=== PATIENT | male | born 1960 | race Caucasian/White ===

== ENCOUNTER 2023-08-01 12:53 | Inpatient (IN) ==
[2023-08-01 13:38] LABS: Basophils # (auto) 0.03 K/uL (0.00-0.20); Basophils % (auto) 0.3 %; Eosinophils # (auto) 0.11 K/uL (0.00-0.50); Hematocrit (blood only) 46.5 % (42.0-52.0); Hemoglobin 15.1 g/dl (14.0-18.0); Immature Granulocytes # (auto) 0.05 K/uL (0.01-0.20); Immature Granulocytes % (auto) 0.5 %; Lymphocytes # (auto) 1.29 K/uL (1.20-3.40); Lymphocytes % (auto) 12.1 %; Mean Corpuscular Hgb Conc 32.5 g/dL (32.0-36.0); Mean Corpuscular Volume 95.5 fL (80.0-100.0); Monocytes # (auto) 0.88 K/uL (0.11-0.59); Monocytes % (auto) 8.3 %; Neutrophils % (auto) 77.8 %; Platelet Count 204 K/uL (130-400); RDW Coefficient of Variation 14.6 % (11.5-14.5); RDW Standard Deviation 50.6 fL (36.4-46.3); Red Blood Count 4.87 M/uL (4.70-6.10); White Blood Count 10.66 K/ul (4.8-10.8)
[2023-08-01 13:48] LABS: Albumin Level 4.2 gm/dl (3.4-5.0); Bilirubin,Total 1.2 mg/dl (0.2-1.0); Calcium 9.3 mg/dl (8.6-10.3); Potassium 4.2 mmol/L (3.5-5.1)
[2023-08-01 13:54] LABS: Albumin Globulin Ratio 1.4 (0.9-2); BUN Creatinine Ratio 16.9 (10-20); Creatinine Clr Calc Pharmacy 117.7 ml/min; Est GFR (African American) 112.7 ml/min; Est GFR (Non-African American) 97.3 ml/min; Globulin 2.9 gm/dl (2.5-4.0); Total Protein 7.1 gm/dl (6.0-8.3)
--- NOTE | 2023-08-01 14:03 | Emergency Department Note ---
Impression & Plan Cellulitis in diabetic foot ED Provider Note CHIEF COMPLAINT: Foot swelling HISTORY OF PRESENT ILLNESS: This 62-year-old patient presents to the emergency department presenting for foot pain/swelling. Patient states that on Friday, 4 days ago, he stepped on a nail. He notes that there was minimal blood, did not think much of it. He states he had his tetanus updated 1 month ago in the ED. He notes that he began having swelling, redness overlying the top of the foot. He states he punctured his foot on the bottom but swelling/redness on the top. He notes that is becoming progressively more painful, warm and red. He had no fevers at home. No nausea vomiting. Significant pain with walking. Otherwise he is a diabetic. REVIEW OF SYSTEMS: A review of systems was performed with positives and pertinent negatives listed in the history of present illness. 10 systems were reviewed and are otherwise negative. ALLERGIES: see below MEDICATIONS: see below PMH: see below SOCIAL HISTORY: see below DDx: Consider osteomyelitis, cellulitis, deep space infection PHYSICAL EXAM: Vital signs reviewed. General: Well-appearing, in no significant distress. HEENT: No scleral icterus, PERRLA, neck supple. Atraumatic. Cardiovascular: Regular rate and rhythm, no extra sounds. Pulmonary: Clear to auscultation bilaterally, normal work of breathing. Abdomen: Soft, nontender, nondistended, positive bowel sounds. Musculoskeletal: Small puncture wound to the right foot underlying first metatarsal, significant swelling, erythema/edema to the top of the foot Neurologic: Patient awake alert and oriented x 3, speech is clear Skin: Warm, dry, no rash EMERGENCY DEPARTMENT COURSE/MDM: This is a 62-year-old male presenting for right foot pain/swelling after stepping on a nail. Patient appears have obvious cellulitis, edema. Will get x-ray to help evaluate for retained foreign body. Low concern for osteomyelitis versus necrotizing infection. Patient has 2+ pulses in all extremities. Patient's blood work shows no significant medicine from a lactic acid level 3.5. Otherwise no leukocytosis. Patient will require admission for IV antibiotics for his cellulitis of the foot. Given vancomycin in the ER. MONITORING: An order for cardiac monitoring was placed and the patient is noted to be in a [] at [] beats per minute. RADIOLOGY: No acute fracture noted on foot x-ray EKG: EKG reviewed by me showing likely atrial fibrillation at a rate of 116, PVCs noted as well, no ST segment elevation consistent with STEMI DISPOSITION: Admitted for inpatient antibiotics Past Med/Surg History Medical History Atrial fibrillation On Eliquis CAD (coronary artery disease) S/p OM and diagonal stenting 2002 S/p stenting x 2 to RCA 2004 S/p ULIS F to mid and distal RCA and ramus 2014 S/p CABG x3 (2019) DM type 2 (diabetes mellitus, type 2) GERD (gastroesophageal reflux disease) HTN (hypertension) Hx of acute renal failure ~2016- renal x 1 month Hx of myocardial infarction 2001 Hyperlipidemia Surgical History H/O colonoscopy History of elbow surgery Hx of cardiac catheterization last one done 03/2023- [facility] ( no stents)--hx 4 procedures in the past -- total of 7 stents Hx of carpal tunnel repair S/P CABG x 3 2017- [facility]- follows w/ Dr Benites Family History Other No family history of adverse response to anesthesia Social History Smoking Status: Never smoker Second Hand Exposure: No; Do You Dip or Chew Tobacco: Yes (advised); Hx Alcohol Use: No Hx Substance Use: No Preferred Language: Polish Communication Ability: Effective Gravity Meter Observer Required: No Beliefs That Will Affect Care: None Current Living Situation: Alone Feels Safe at Home: Yes Assistive Devices: Contacts and Glasses Allergies Allergies Allergy/AdvReac Type Severity Reaction Status Date / Time No Known Allergies Allergy Verified 05/14/23 07:13 Home Meds Home Medications Medication Instructions Recorded Confirmed clopidogrel 75 mg tablet 75 mg PO DAILY 01/04/21 08/01/23 empagliflozin 25 mg tablet 25 mg PO DAILY 01/04/21 08/01/23 (Jardiance) glyburide 5 mg tablet 5 mg PO BID 01/04/21 08/01/23 metformin 1,000 mg tablet 1,000 mg PO BIDM 01/04/21 08/01/23 metoprolol succinate 50 mg 50 mg PO BID 01/04/21 08/01/23 tablet,extended release 24 hr (Toprol XL) multivitamin 1 tab PO DAILY 01/04/21 08/01/23 pantoprazole 20 mg tablet,delayed 20 mg PO DAILY 01/04/21 08/01/23 release ramipril 2.5 mg capsule 2.5 mg PO QAM 01/04/21 08/01/23 apixaban 5 mg tablet (Eliquis) 5 mg PO BID 05/12/23 08/01/23 rosuvastatin 40 mg tablet 40 mg PO QAM 05/12/23 08/01/23 metoprolol succinate 25 mg 25 mg PO BID 08/01/23 08/01/23 tablet,extended release 24 hr Results & Data (ED) Vital Signs Vital Signs - 24 hr 08/01/23 12:57 08/01/23 14:53 Temperature 36.4 C L Temperature Source Temporal Artery Scan Pulse Rate 84 Pulse Rate [Right Finger] 82 Pulse Rhythm [Right Finger] Regular Pulse Strength [Right Finger] Normal Respiratory Rate 20 20 Respiratory Effort / Characteristics Non-Labored Non-Labored Spontaneous Respiratory Depth Normal Normal Respiratory Pattern Regular Blood Pressure 130/78 Blood Pressure [Left Arm] 129/72 Blood Pressure Mean 95 Blood Pressure Mean [Left Arm] 91 Blood Pressure Position Sitting Pulse Oximetry 100 95 Oxygen Delivery Method Room Air Room Air Sepsis Recent Fever Within 48 Hours No Sepsis New/Unexplained Change in Mental Status No Sepsis Action Taken by Nursing No Action Required Laboratory Data 08/01/23 13:20 08/01/23 13:20 Lab Results 08/01/23 08/01/23 08/01/23 Range/Units 13:20 13:20 14:45 WBC 10.66 (4.8-10.8) K/ul RBC 4.87 (4.70-6.10) M/uL Hgb 15.1 (14.0-18.0) g/dl Hct 46.5 (42.0-52.0) % MCV 95.5 (80.0-100.0) fL MCH 31.0 (25.0-34.0) pg MCHC 32.5 (32.0-36.0) g/dL RDW Std Deviation 50.6 H (36.4-46.3) fL RDW Coeff of Rosa 14.6 H (11.5-14.5) % Plt Count 204 (130-400) K/uL MPV 10.0 (9.4-12.4) fL Immature Gran % (Auto) 0.5 % Neut % (Auto) 77.8 % Lymph % (Auto) 12.1 % Giles % (Auto) 8.3 % Eos % (Auto) 1.0 % Baso % (Auto) 0.3 % Neut # (Auto) 8.30 H (1.40-6.50) K/uL Lymph # (Auto) 1.29 (1.20-3.40) K/uL Giles # (Auto) 0.88 H (0.11-0.59) K/uL Eos # (Auto) 0.11 (0.00-0.50) K/uL Baso # (Auto) 0.03 (0.00-0.20) K/uL Immature Gran # (Auto) 0.05 (0.01-0.20) K/uL Sodium 134 L (136-145) mmol/L Potassium 4.2 (3.5-5.1) mmol/L Chloride 102 (98-107) mmol/L Carbon Dioxide 21 (21-32) mmol/L Anion Gap 11 (3-11) BUN 13 (6-23) mg/dl Creatinine 0.77 (0.6-1.4) mg/dl Est Cr Clr Drug Dosing 117.7 ml/min Est GFR ( Amer) 112.7 ml/min Est GFR (Non-Af Amer) 97.3 ml/min BUN/Creatinine Ratio 16.9 (10-20) Glucose 283 H (70-99(Fasting)) mg/dl Lactate 3.4 H* (0.4-2.0) mmol/L Calcium 9.3 (8.6-10.3) mg/dl Total Bilirubin 1.2 H (0.2-1.0) mg/dl AST 19 (13-39) U/L ALT 29 (7-52) U/L Alkaline Phosphatase 45 (34-104) U/L Total Protein 7.1 (6.0-8.3) gm/dl Albumin 4.2 (3.4-5.0) gm/dl Globulin 2.9 (2.5-4.0) gm/dl Albumin/Globulin Ratio 1.4 (0.9-2) Administered Medications Vancomycin HCl 2,000 mg/ (Sodium Chloride) 540 mls @ 200 mls/hr IV NOW ONE Stop: 08/01/23 17:04 Last Admin: 08/01/23 15:05 Dose: 200 mls/hr Documented By: KAELYN Discontinued Medications Sodium Chloride (Nss 1000ml) 1,000 mls @ 999 mls/hr IV .Q1H1M ONE Stop: 08/01/23 16:08 Last Infusion: 08/01/23 16:17 Dose: 0 mls/hr Documented By: Admin: 08/01/23 15:12 Dose: 999 mls/hr Documented By: KAELYN Cefepime HCl (Maxipime) 20 mls @ 5 mls/min IV NOW STA Stop: 08/01/23 15:35 Last Admin: 08/01/23 16:05 Dose: 5 mls/min Documented By: DHARA Imaging Data Radiologist's Impression: Foot X-Ray 08/01/23 13:53 XR foot RT min 3V routine CLINICAL HISTORY: foreign body (stepped on nail), erythema,swell TECHNIQUE: 3 views of the right foot were obtained. Comparison: None available at the time of this dictation. FINDINGS: No fractures are present. Degenerative changes are seen. No soft tissue abnormality is seen. IMPRESSION: Degenerative changes without evidence of acute fracture. ACT 112: Negative or not required by law. Electronically signed by: Connor Whitney M.D. 08/01/2023 2:27 PM Discharge Plan Visit Data Chief Complaint: Foot Injury/Pain Stated Complaint: STEPPED ON A NAIL W/ R FOOT, CAME FROM -CARE ED Provider: Andie Monaco Discharge Problem: Cellulitis in diabetic foot Forms Stand Alone Forms: My [facility] [employer] Prescriptions Prescriptions: No Action multivitamin Tablet 1 tab PO DAILY glyburide 5 mg tablet 5 mg PO BID metoprolol succinate [Toprol XL] 50 mg tablet extended release 24 hr 50 mg PO BID Rx Instructions: Patient states taking once daily in the am, but prescribed BID with 25mg toprol BID as well clopidogrel 75 mg tablet 75 mg PO DAILY pantoprazole 20 mg tablet,delayed release (DR/EC) 20 mg PO DAILY metformin 1,000 mg tablet 1,000 mg PO BIDM ramipril 2.5 mg capsule 2.5 mg PO QAM Jardiance 25 mg tablet 25 mg PO DAILY rosuvastatin 40 mg Tablet 40 mg PO QAM Eliquis 5 mg Tablet 5 mg PO BID metoprolol succinate 25 mg tablet extended release 24 hr 25 mg PO BID Rx Instructions: Prescribed BID to take with 50mg toprol bid as well but pt states taking once daily in PM Referrals Referrals: Ghassan Thakur MD [Primary Care Provider] -
[2023-08-01] MEDS ORDERED: VANCOMYCIN HCL 2,000 MG in SODIUM CHLORIDE 0.9% 500 ML IV ONE (14:23)
[2023-08-01] MEDS ORDERED: VANCOMYCIN CONSULT ACTIVE PRN ×2 (14:23→17:14)
--- NOTE | 2023-08-01 14:30 | XRay Report ---
XR foot RT min 3V routine CLINICAL HISTORY: foreign body (stepped on nail), erythema,swell TECHNIQUE: 3 views of the right foot were obtained. Comparison: None available at the time of this dictation. FINDINGS: No fractures are present. Degenerative changes are seen. No soft tissue abnormality is seen. IMPRESSION: Degenerative changes without evidence of acute fracture. ACT 112: Negative or not required by law. Electronically signed by: Connor Whitney M.D. 08/01/2023 2:27 PM
[2023-08-01] MEDS ORDERED: SODIUM CHLORIDE 0.9% 1,000 ML IV ONE (15:08)
--- NOTE | 2023-08-01 15:23 | History & Physical Report ---
Date of Service August 01, 2023 Assessment & Plan (1) Cellulitis in diabetic foot: Plan: Patient is 62-year-old male with PMH CAD s/p stents, CABG, HTN, dyslipidemia, PAF s/p cardioversion, GERD presented to ER with complaint of right foot redness x 1 day after stepping on nail with puncture through sneaker 4 days ago. Reported tetanus booster 07/2023 In ER afebrile, HR 84-101, other vitals stable. WBC: 10.6, lactate 3.4--> 1.9 Right foot x-ray: No fracture or foreign body noted per my interpretation. Radiologist read as Degenerative changes without evidence of acute fracture. In ER given 1L NSS, vancomycin Start cefepime, continue vancomycin Blood cultures pending. Were obtained after initial antibiotics given Podiatry consult CBC, BMP in a.m. Hold Eliquis and make n.p.o. midnight in case of acute worsening in procedure needed. Reassess tomorrow (2) DM type 2 (diabetes mellitus, type 2): Plan: A1c: 7.9 on 03/10/2023 Random glucose 283 Hold home Jardiance, glyburide, metformin Basal bolus insulin per protocol A1c in a.m. (3) Atrial fibrillation: Plan: History of paroxysmal atrial fibrillation s/p cardioversion 05/2023 Chronically anticoagulated on Eliquis Holding Eliquis currently as above Initial EKG rate 116, questionable atrial fibrillation per my interpretation. Obtain new EKG to further assess Patient prescribed metoprolol succinate 75 mg twice daily however has been taking 50 mg in a.m. and 25 mg at bedtime Plan to continue metoprolol succinate as patient recently taken however monitor heart rate, may need dosage based on heart rate (4) CAD (coronary artery disease): Plan: S/p stent, CABG x3 Per outpatient chart review History cardiac cath 04/30/2023: Significant pokagon multivessel disease: Distal LMCA 30%, mid LAD 100%, diagonal 1 is small vessel and diffusely diseased, proximal left circumflex 50% stenosis, OM1 50% stenosis distal to previously placed stent which is patent, proximal through mid RCA 100% occluded (in-stent) grafts 2/3 GUILLEN-LAD and SVG to r PDA widely patent, SVG to diag is 100% flush occluded Denies chest pain, shortness of breath Continue Plavix, rosuvastatin, metoprolol succinate (5) HTN (hypertension): Plan: Stable Continue metoprolol succinate, ramipril (6) GERD (gastroesophageal reflux disease): Plan: Continue PPI DVT Prophylaxis SCDs for now Full Code as per discussion with pt Follows with Dr Thakur for routine care Pt was seen and care coordinated with Dr Hearn. See addendum History of Present Illness Chief Complaint: foot redness and pain Primary Care Provider: Ghassan Thakur MD Patient is 62-year-old male with PMH CAD s/p stents, CABG, HTN, dyslipidemia, PAF s/p cardioversion, GERD presented to ER with complaint of right foot redness x 1 day. Patient states 4 days ago stepped on nail with right foot. Patient states nail punctured through his sneaker into his plantar surface of right foot. Patient states nail was not lodged in his foot however did leave puncture wound. Yesterday noticed foot started to become swollen and tender. Today noticed redness to dorsal aspect of foot. Pain to right foot is worse today, aggravated with any light palpation or attempted walking or weightbearing. Denies noted red streaking or any noted purulent discharge from foot. Patient reports history of stepping on nail with right foot approximately 4 weeks ago and received tetanus booster and oral antibiotics at that time. Patient states never had any redness, erythema or pain to foot at that time. Denies fever/chills, diaphoresis, N/V/D/C, HOOPER, dizziness, syncope, vision changes, neck pain, CP, SOB, orthopnea, palpitations, cough, sore throat, choking, otalgia, rhinorrhea, abdominal pain, paresthesias, weakness, other rashes, urinary symptoms. Allergies Allergy/AdvReac Type Severity Reaction Status Date / Time No Known Allergies Allergy Verified 05/14/23 07:13 Home Medications Medication Instructions Recorded Confirmed Type clopidogrel 75 mg tablet 75 mg PO DAILY 01/04/21 08/01/23 History empagliflozin 25 mg tablet 25 mg PO DAILY 01/04/21 08/01/23 History (Jardiance) glyburide 5 mg tablet 5 mg PO BID 01/04/21 08/01/23 History metformin 1,000 mg tablet 1,000 mg PO BIDM 01/04/21 08/01/23 History metoprolol succinate 50 mg 50 mg PO BID 01/04/21 08/01/23 History tablet,extended release 24 hr (Toprol XL) multivitamin 1 tab PO DAILY 01/04/21 08/01/23 History pantoprazole 20 mg tablet,delayed 20 mg PO DAILY 01/04/21 08/01/23 History release ramipril 2.5 mg capsule 2.5 mg PO QAM 01/04/21 08/01/23 History apixaban 5 mg tablet (Eliquis) 5 mg PO BID 05/12/23 08/01/23 History rosuvastatin 40 mg tablet 40 mg PO QAM 05/12/23 08/01/23 History metoprolol succinate 25 mg 25 mg PO BID 08/01/23 08/01/23 History tablet,extended release 24 hr Past Med/Surg History Medical History Atrial fibrillation On Eliquis CAD (coronary artery disease) S/p OM and diagonal stenting 2002 S/p stenting x 2 to RCA 2004 S/p LUIS F to mid and distal RCA and ramus 2014 S/p CABG x3 (2019) DM type 2 (diabetes mellitus, type 2) GERD (gastroesophageal reflux disease) HTN (hypertension) Hx of acute renal failure ~2016- renal x 1 month Hx of myocardial infarction 2001 Hyperlipidemia Surgical History H/O colonoscopy History of elbow surgery Hx of cardiac catheterization last one done 03/2023- [facility] ( no stents)--hx 4 procedures in the past -- total of 7 stents Hx of carpal tunnel repair S/P CABG x 3 2017- [facility]- follows w/ Dr Benites Family History Other No family history of adverse response to anesthesia Social History Smoking Status: Never smoker Second Hand Exposure: No; Do You Dip or Chew Tobacco: Yes; Hx Alcohol Use: Yes Alcohol type: hard liquor Hx Substance Use: No Preferred Language: [place] Communication Ability: Effective Professional Services Manager Required: No Beliefs That Will Affect Care: None Current Living Situation: Alone Other Information That Helps Us Care for You: No Feels Safe at Home: Yes Safety Concerns: Feels Safe At This Time Assistive Devices: None Review of Systems Review of Systems: All systems reviewed & are unremarkable except as noted in HPI & below Physical Exam Physical Exam: General: no distress, WDWN Head: normocephalic, atraumatic Eyes: conjunctiva non-injected, anicteric ENT: normal inspection external ears, nose, mucous membranes moist Neck: supple, trachea midline Lungs: clear, no respiratory distress, no wheezing/rhonchi/rales CV: RRR, no murmur, no JVD, no pretibial edema Abd: normal BS, soft, non-tender Ext: no cyanosis, no calf tenderness; RLE: Right foot: + Diffuse edema to entire foot, positive erythema and warmth to dorsal aspect of foot with tenderness to very light palpation, no fluctuance noted, plantar surface distal lateral aspect foot with noted puncture wound without any discharge. No red streaking noted up leg Neuro: A&O x 3, no focal deficits noted, normal affect Skin: As above in extremities, otherwise skin warm, dry Results & Data Results & Data Vital Signs (Past 12 Hours) Vital Signs Temp Pulse Pulse Resp BP BP Pulse Ox 08/01/23 14:53 82 20 129/72 95 08/01/23 12:57 36.4 C L 84 20 130/78 100 O2 Del Method 08/01/23 14:53 Room Air 08/01/23 12:57 Room Air Laboratory Results Short CBC 08/01/23 Range/Units 13:20 WBC 10.66 (4.8-10.8) K/ul Hgb 15.1 (14.0-18.0) g/dl Hct 46.5 (42.0-52.0) % Plt Count 204 (130-400) K/uL BMP 08/01/23 13:20 Sodium 134 L Potassium 4.2 Chloride 102 Carbon Dioxide 21 BUN 13 Creatinine 0.77 Glucose 283 H Calcium 9.3 Liver Function 08/01/23 Range/Units 13:20 Total Bilirubin 1.2 H (0.2-1.0) mg/dl AST 19 (13-39) U/L ALT 29 (7-52) U/L Alkaline Phosphatase 45 (34-104) U/L Albumin 4.2 (3.4-5.0) gm/dl Diagnostic Findings Foot X-Ray 08/01/23 13:53 XR foot RT min 3V routine CLINICAL HISTORY: foreign body (stepped on nail), erythema,swell TECHNIQUE: 3 views of the right foot were obtained. Comparison: None available at the time of this dictation. FINDINGS: No fractures are present. Degenerative changes are seen. No soft tissue abnormality is seen. IMPRESSION: Degenerative changes without evidence of acute fracture. ACT 112: Negative or not required by law. Electronically signed by: Connor Whitney M.D. 08/01/2023 2:27 PM Supervising Physician Co-Signing Physician Notes Pt seen and examined by me, care coordinated w/ Dawn Mercado PA-C, pls refer to her note above for further detail. Pt is 62 yo M male w/ CAD s/p stents, CABG, HTN, dyslipidemia, PAF s/p cardioversion, GERD who presents w/ right foot redness and pain. 4 days ago he stepped on nail with right foot and nail punctured through his sneaker into his plantar surface of right foot. Yesterday noticed foot started to become swollen and tender. Today noticed redness to dorsal aspect of foot. Pain to right foot is worse today, aggravated with any light palpation. Denies fever/chills, chest pain or shortness of breath. Currently laying in bed in NAD. awake alert oriented , answering appropriately. Lung sounds clear, heart sounds regular, abdomen soft, nontender and obese, + erythema and warmth to dorsal aspect of foot with tenderness to very light palpation, plantar surface distal lateral aspect foot with noted puncture wound without any discharge. No red streaking noted up leg. Pt is moving extremities. Started on vancomycin in ED, adding cefepime. Podiatry consult. Follow [facility]. MD Nadiya
[2023-08-01] MEDS ORDERED: CEFEPIME 2,000 MG in SYRINGE 0 ML IV STA (15:29)
[2023-08-01] MEDS ORDERED: CEFEPIME 20 ML IV STA (15:32)
[2023-08-01] MEDS ORDERED: CARBOHYDRATES FOR HYPOGLYCEMIA PO PRN (17:14)
[2023-08-01] MEDS ORDERED: POLYETHYLENE (MIRALAX) 17 GM PACK PO PRN (17:14)
[2023-08-01] MEDS ORDERED: GLUCOSE 40% GEL 15 GM TUBE PO PRN (17:14)
[2023-08-01] MEDS ORDERED: ONDANSETRON INJ 2 MG/ML 2 ML VIAL IV PRN (17:14)
[2023-08-01] MEDS ORDERED: GLUCOSE 10 TAB/TUBE PO PRN (17:14)
[2023-08-01] MEDS ORDERED: GLUCAGON FOR INJ 1 MG VIAL SQ PRN (17:14)
[2023-08-01] MEDS ORDERED: DEXTROSE 50% 50 ML SYRINGE IV PRN (17:14)
[2023-08-01] MEDS ORDERED: SODIUM CHLORIDE 0.9% 1,000 ML IV SCH (17:14)
[2023-08-01] MEDS: oxyCODONE HCL IR 5 MG TAB (IMMEDIATE RELEASE) PO PRN (18:24)
[2023-08-01] MEDS ORDERED: PNEUMOCOCCAL Polysaccharide Vaccine 25mcg/0.5mL vial/Syr IM ONE (19:45)
[2023-08-01] MEDS: INSULIN ASPART PER UNIT CHARGE SC SCH ×2 (20:31→21:16)
[2023-08-01] MEDS ORDERED: METOPROLOL SUCC 25MG EXT REL TAB PO SCH (21:00)
[2023-08-01] MEDS ORDERED: VANCOMYCIN HCL 1,500 MG in SODIUM CHLORIDE 0.9% 500 ML IV SCH (21:00)
[2023-08-01] MEDS: LANTUS PER UNIT CHARGE SQ SCH (21:16)
[2023-08-01] MEDS ORDERED: HYDROmorphone INJ 0.5 MG/0.5 ML SYR IV STA (21:24)
[2023-08-01] MEDS: METOPROLOL SUCC 50MG EXT REL TAB PO SCH (22:00)
--- NOTE | 2023-08-01 22:20 | Orthopedic Consultation ---
Date of Consultation August 01, 2023 Assessment & Plan (1) Cellulitis in diabetic foot: Patient seen, evaluated, and treated. Reviewed puncture wound and ascending cellulitis. Reviewed x-ray images and x-ray findings. There is no gas seen in soft tissue. (+) forefoot edema noted. Fourth proximal phalanx shows probable foreign body noted on AP and oblique plain films. Patient reports puncture wound with galvanized nail. Foreign body findings consistent with zinc flakes from galvanized nail. Continue broad spectrum IV abx therapy. Will continue to follow while in house. Thank you for allowing me to participate in this Patients care. (2) DM type 2 (diabetes mellitus, type 2): History of Present Illness Attending Physician: Ag Hearn MD History of Present Illness Patient is 62-year-old male seen at bedside for right foot punchture wound with associated cellulitis. Patient has a past medical history signficant for Type II diabetes, CAD s/p stents, CABG, HTN, dyslipidemia, PAF s/p cardioversion, GERD. Patient presented to urgent care who directed him to [facility] ER. Patient states he stepped on a galvanized nail which went through his shoe into his right foot. Date on injury Friday07/29/23. Patient notes yesterday he noticed foot started to become swollen and tender. Today noticed worsening redness to dorsal aspect of foot. Pain to right foot is worse today, aggravated with any light palpation or attempted walking or weightbearing. Allergies Allergy/AdvReac Type Severity Reaction Status Date / Time No Known Allergies Allergy Verified 05/14/23 07:13 Home Medications Medication Instructions Recorded Confirmed Type clopidogrel 75 mg tablet 75 mg PO DAILY 01/04/21 08/01/23 History empagliflozin 25 mg tablet 25 mg PO DAILY 01/04/21 08/01/23 History (Jardiance) glyburide 5 mg tablet 5 mg PO BID 01/04/21 08/01/23 History metformin 1,000 mg tablet 1,000 mg PO BIDM 01/04/21 08/01/23 History metoprolol succinate 50 mg 50 mg PO BID 01/04/21 08/01/23 History tablet,extended release 24 hr (Toprol XL) multivitamin 1 tab PO DAILY 01/04/21 08/01/23 History pantoprazole 20 mg tablet,delayed 20 mg PO DAILY 01/04/21 08/01/23 History release ramipril 2.5 mg capsule 2.5 mg PO QAM 01/04/21 08/01/23 History apixaban 5 mg tablet (Eliquis) 5 mg PO BID 05/12/23 08/01/23 History rosuvastatin 40 mg tablet 40 mg PO QAM 05/12/23 08/01/23 History metoprolol succinate 25 mg 25 mg PO BID 08/01/23 08/01/23 History tablet,extended release 24 hr Patient History Medical History Atrial fibrillation On Eliquis CAD (coronary artery disease) S/p OM and diagonal stenting 2001 S/p stenting x 2 to RCA 2003 S/p LUIS F to mid and distal RCA and ramus 2014 S/p CABG x3 (2019) DM type 2 (diabetes mellitus, type 2) GERD (gastroesophageal reflux disease) HTN (hypertension) Hx of acute renal failure ~2016- renal x 1 month Hx of myocardial infarction 2001 Hyperlipidemia Surgical History H/O colonoscopy History of elbow surgery Hx of cardiac catheterization last one done 03/2023- [facility] [place] ( no stents)--hx 4 procedures in the past -- total of 7 stents Hx of carpal tunnel repair S/P CABG x 3 2017- [facility]- follows w/ Dr Benites Family History Other No family history of adverse response to anesthesia Social History Smoking Status: Never smoker Second Hand Exposure: No; Do You Dip or Chew Tobacco: Yes; Hx Alcohol Use: Yes Alcohol type: hard liquor Hx Substance Use: No Preferred Language: Guatemalan Communication Ability: Effective Photonics Engineering Technologist Required: No Beliefs That Will Affect Care: None Current Living Situation: Alone Other Information That Helps Us Care for You: No Feels Safe at Home: Yes Safety Concerns: Feels Safe At This Time Assistive Devices: None Review of Systems Review of Systems: All systems reviewed & are unremarkable except as noted in Subjective Physical Exam Constitutional: well developed, well nourished, cooperative and comfortable Eyes: normal visual terrell by confrontation Neck: normal visual inspection and trachea midline Cardiovascular: Vessels: posterior tibial pulses present and dorsalis pedis pulses present Extremities: normal capillary refill, + pedal edema and + edema (Right foot, ankle, leg) Musculoskeletal: Extremities: extremities normal to inspection (Pain on palpation to right foot and ankle.) Skin: + erythema (Right dorsal foot and ankle extending to anterior leg) Trauma: + puncture (Right fourth MTPJ) Neurologic: moves all extremities Psychiatric: Orientation: alert and oriented x 3 Results & Data Vital Signs (Past 12 Hours) Vital Signs Temp Pulse Pulse Resp BP BP BP 08/01/23 19:13 36.5 C 97 H 18 113/61 08/01/23 18:26 36.5 C 101 H 16 138/83 08/01/23 17:30 82 18 133/89 08/01/23 14:53 82 20 129/72 08/01/23 12:57 36.4 C L 84 20 130/78 Pulse Ox O2 Del Method 08/01/23 19:13 99 Room Air 08/01/23 18:26 99 Room Air 08/01/23 17:30 100 Room Air 08/01/23 14:53 95 Room Air 08/01/23 12:57 100 Room Air
[2023-08-01] MEDS: CEFEPIME 2,000 MG in SYRINGE 0 ML IV SCH (23:16)
[2023-08-01] MEDS: ACETAMINOPHEN 325 MG TAB PO PRN (23:16)
[2023-08-02] MEDS ORDERED: VANCOMYCIN HCL 1,250 MG in SODIUM CHLORIDE 0.9% 250 ML IV SCH (03:00)
[2023-08-02] MEDS: oxyCODONE HCL IR 5 MG TAB (IMMEDIATE RELEASE) PO PRN ×3 (04:54→23:57)
[2023-08-02 07:03] LABS: Basophils # (auto) 0.04 K/uL (0.00-0.20); Basophils % (auto) 0.5 %; Eosinophils # (auto) 0.29 K/uL (0.00-0.50); Eosinophils % (auto) 3.3 %; Hematocrit (blood only) 37.9 % (42.0-52.0); Hemoglobin 12.8 g/dl (14.0-18.0); Immature Granulocytes # (auto) 0.05 K/uL (0.01-0.20); Immature Granulocytes % (auto) 0.6 %; Lymphocytes # (auto) 1.52 K/uL (1.20-3.40); Lymphocytes % (auto) 17.3 %; Mean Corpuscular Hemoglobin 31.1 pg (25.0-34.0); Mean Corpuscular Hgb Conc 33.8 g/dL (32.0-36.0); Mean Corpuscular Volume 92.2 fL (80.0-100.0); Mean Platelet Volume 9.8 fL (9.4-12.4); Monocytes # (auto) 0.85 K/uL (0.11-0.59); Monocytes % (auto) 9.7 %; Neutrophils # (auto) 6.02 K/uL (1.40-6.50); Neutrophils % (auto) 68.6 %; Platelet Count 182 K/uL (130-400); RDW Coefficient of Variation 14.4 % (11.5-14.5); RDW Standard Deviation 48.7 fL (36.4-46.3); Red Blood Count 4.11 M/uL (4.70-6.10); White Blood Count 8.77 K/ul (4.8-10.8)
[2023-08-02 08:05] LABS: BUN Creatinine Ratio 16.4 (10-20); Calcium 8.2 mg/dl (8.6-10.3); Creatinine Clr Calc Pharmacy 148.6 ml/min; Potassium 3.6 mmol/L (3.5-5.1)
[2023-08-02] MEDS: CEFEPIME 2,000 MG in SYRINGE 0 ML IV SCH ×3 (08:46→23:35)
[2023-08-02] MEDS: METOPROLOL SUCC 50MG EXT REL TAB PO SCH ×2 (08:47→21:43)
[2023-08-02] MEDS: ROSUVASTATIN CALCIUM 20 MG TAB PO SCH (08:47)
[2023-08-02] MEDS: ENALAPRIL MALEATE 10 MG TAB PO SCH (08:47)
[2023-08-02] MEDS: ACETAMINOPHEN 325 MG TAB PO PRN (08:48)
[2023-08-02] MEDS: PANTOprazole 40 MG TAB PO SCH (08:48)
[2023-08-02] MEDS: CLOPIDOGREL BISULFATE 75 MG TAB PO SCH (08:48)
[2023-08-02 09:05] LABS: Estimated Average Glucose 189 mg/dl; Hemoglobin A1C 8.2 % (4.5-5.6)
[2023-08-02] MEDS ORDERED: ACETAMINOPHEN 325 MG TAB PO PRN (10:19)
[2023-08-02] MEDS: INSULIN ASPART PER UNIT CHARGE SC SCH ×4 (10:19→21:40)
[2023-08-02] MEDS: LANTUS PER UNIT CHARGE SQ SCH ×2 (10:20→21:42)
[2023-08-02] MEDS ORDERED: Heparin IV Adult Wt-Based Low-Dose *NO* Bolus Protocol IV SCH (10:33)
--- NOTE | 2023-08-02 11:00 | Hospitalist Progress Note ---
Date of Service August 02, 2023 Assessment & Plan (1) Cellulitis in diabetic foot: Plan: 62-year-old male with PMH CAD s/p stents, CABG, HTN, dyslipidemia, PAF s/p cardioversion, GERD presented to ER with complaint of right foot redness x 1 day after stepping on nail with puncture through sneaker 4 days ago. Reported tetanus booster 07/2023 In ER afebrile, HR 84-101, other vitals stable. WBC: 10.6, lactate 3.4--> 1.9 Right foot x-ray noted degenerative changes without evidence of acute fracture. Education And Training Manager evaluation noted Continue vancomycin and cefepime Optimize pain control (2) DM type 2 (diabetes mellitus, type 2): Plan: A1c: 7.9 on 03/10/2023 HbA1c is 8.2 today Continue to hold home Jardiance, glyburide, metformin Continue insulin per protocol to ensure normoglycemia (3) Atrial fibrillation: Plan: History of paroxysmal atrial fibrillation s/p cardioversion 05/2023 Chronically anticoagulated on Eliquis Currently in Afib Continue metoprolol succinate Home eliquis on hold in case surgical procedure is needed this admission Will do heparin drip for now while eliquis is on hold Per Admitting Provider, Patient prescribed metoprolol succinate 75 mg twice daily however has been taking 50 mg in a.m. and 25 mg at bedtime Will monitor (4) CAD (coronary artery disease): Plan: S/p stent, CABG x3 Per outpatient chart review History cardiac cath 04/30/2023: Significant [place] multivessel disease: Distal LMCA 30%, mid LAD 100%, diagonal 1 is small vessel and diffusely diseased, proximal left circumflex 50% stenosis, OM1 50% stenosis distal to previously placed stent which is patent, proximal through mid RCA 100% occluded (in-stent) grafts 2/3 GUILLEN-LAD and SVG to r PDA widely patent, SVG to diag is 100% flush occluded Continue Plavix, rosuvastatin, metoprolol succinate (5) HTN (hypertension): Plan: Stable Continue metoprolol succinate, ACEI (6) GERD (gastroesophageal reflux disease): Plan: Continue PPI DVT Prophylaxis Hep gtt as above Full Code as per discussion with pt Follows with Dr Thakur for routine care I spent a total of 50 minutes coordinating, documenting and providing care for this patient excluding time spent in performance of separately billed services Admission and Anticipated Discharge Date Admission Date: August 01, 2023 Subjective Patient seen and examined Reports severe right foot pain/swelling Denied fever, chills, nausea, vomiting, abd pain, diarrhea, constipation Denied cough, chest pain, SOB Physical Exam Constitutional: + well hydrated; no acute distress Eyes: PERRL, conjunctivae normal, anicteric sclerae ENMT: external ear and nose normal, oropharynx normal Respiratory: normal respiratory effort, lungs clear to auscultation Cardiovascular: Rate/Rhythm: + irregularly irregular S1 S2 Gastrointestinal (Abdomen): normal bowel sounds, soft, nontender, no hepatosplenomegaly Musculoskeletal: Right foot swelling. Erythema over dorsum extending to lower leg (within markings), significant tenderness Puncture wound on dorsum of feet Neurologic: PERRL, EOMI, accommodation nl, no face palsy, no dysarthria Psychiatric: A+Ox3, euthymic affect Results & Data Results & Data Vital Signs (Past 12 Hours) Vital Signs Temp Pulse Resp BP Pulse Ox O2 Del Method 08/02/23 07:38 36.8 C 60 16 103/65 97 Room Air 08/02/23 05:01 36.4 C L 93 H 18 119/69 97 Room Air 08/01/23 23:50 Room Air Laboratory Results Abnormal lab results 08/01/23 08/01/23 08/01/23 Range/Units 13:20 13:20 14:45 RBC (4.70-6.10) M/uL Hgb (14.0-18.0) g/dl Hct (42.0-52.0) % RDW Std Deviation 50.6 H (36.4-46.3) fL RDW Coeff of Rosa 14.6 H (11.5-14.5) % Neut # (Auto) 8.30 H (1.40-6.50) K/uL [place] # (Auto) 0.88 H (0.11-0.59) K/uL Sodium 134 L (136-145) mmol/L Glucose 283 H (70-99(Fasting)) mg/dl POC Glucose (70-99) mg/dl Hemoglobin A1c (4.5-5.6) % Lactate 3.4 H* (0.4-2.0) mmol/L Calcium (8.6-10.3) mg/dl Total Bilirubin 1.2 H (0.2-1.0) mg/dl 08/01/23 08/02/23 08/02/23 Range/Units 17:27 06:04 06:04 RBC 4.11 L (4.70-6.10) M/uL Hgb 12.8 L (14.0-18.0) g/dl Hct 37.9 L (42.0-52.0) % RDW Std Deviation 48.7 H (36.4-46.3) fL RDW Coeff of Rosa (11.5-14.5) % Neut # (Auto) (1.40-6.50) K/uL [place] # (Auto) 0.85 H (0.11-0.59) K/uL Sodium (136-145) mmol/L Glucose 53 L* (70-99(Fasting)) mg/dl POC Glucose 140 H (70-99) mg/dl Hemoglobin A1c (4.5-5.6) % Lactate (0.4-2.0) mmol/L Calcium 8.2 L (8.6-10.3) mg/dl Total Bilirubin (0.2-1.0) mg/dl 08/02/23 08/02/23 Range/Units 06:04 07:57 RBC (4.70-6.10) M/uL Hgb (14.0-18.0) g/dl Hct (42.0-52.0) % RDW Std Deviation (36.4-46.3) fL RDW Coeff of Rosa (11.5-14.5) % Neut # (Auto) (1.40-6.50) K/uL [place] # (Auto) (0.11-0.59) K/uL Sodium (136-145) mmol/L Glucose (70-99(Fasting)) mg/dl POC Glucose 112 H (70-99) mg/dl Hemoglobin A1c 8.2 H (4.5-5.6) % Lactate (0.4-2.0) mmol/L Calcium (8.6-10.3) mg/dl Total Bilirubin (0.2-1.0) mg/dl
--- NOTE | 2023-08-02 11:25 | Pharmacy Report ---
Pharmacy PK ABX Note - Date of Service August 02, 2023 - Assessment and Plan Assessment 62 year old M receiving vancomycin/cefepime for treatment of foot cellulitis after stepping on nail with puncture through sneaker 4 days ago. Pertinent microbiologic data includes: Pending blood cultures (drawn after abx) Day # 2 of antimicrobial therapy. Plan Vancomycin * Loading dose: 2000 mg IV x 1 * Maintenance dose: 1250 mg IV every 8 hours --> will adjust to 1500 mg q12H * Regimen is predicted to achieve target AUC/DORA of 400-600 mg/L.hr * Random level for tomorrow 08/03 ~1000 Pharmacy will continue to follow and will adjust dose/frequency as necessary. Thank you. Pharmacy has transitioned to AUC monitoring for vancomycin. AUC/DORA is the preferred PK/PD target and is associated with decreased risk of nephrotoxicity compared to traditional trough targets.
[2023-08-02 11:35] LABS: Partial Thromboplastin Ratio 1.1; Prothrombin Time 11.3 Seconds (9.0-12.0)
[2023-08-02] MEDS: HYDROmorphone INJ 0.5 MG/0.5 ML SYR IV PRN ×2 (12:03→19:26)
[2023-08-02] MEDS: HEPARIN SODIUM/DEXTROSE 25,000 UNITS/500 ML BAG IV SCH (12:04)
[2023-08-02] MEDS: VANCOMYCIN HCL 1,500 MG in SODIUM CHLORIDE 0.9% 500 ML IV SCH (16:28)
[2023-08-02 19:00] LABS: Partial Thromboplastin Ratio 1.3; Partial Thromboplastin Time 36.5 Seconds (21.0-31.0)
--- NOTE | 2023-08-02 21:59 | Orthopedic Progress Note ---
Date of Service August 02, 2023 Assessment & Plan (1) Cellulitis in diabetic foot: Plan: Patient seen, evaluated, and treated. Reviewed puncture wound and ascending cellulitis. Significant decrease in erythema and edema noted to Right foot. Discussed Patient concern over continued pain with only minimal decrease. Patient may benefit from CT with contrast r/o abscess if discomfort continues. Thank you for allowing me to participate in this Patients care. (2) DM type 2 (diabetes mellitus, type 2): Admission and Anticipated Discharge Date Admission Date: August 01, 2023 Subjective Patient seen at bedside resting comfortably. He notes continued pain to right foot. Review of Systems Review of Systems: All systems reviewed & are unremarkable except as noted in Subjective Physical Exam Constitutional: well developed, well nourished, cooperative and comfortable Eyes: normal visual terrell by confrontation Neck: normal visual inspection and trachea midline Cardiovascular: Rate/Rhythm: + irregularly irregular Vessels: posterior tibial pulses present and dorsalis pedis pulses present Extremities: normal capillary refill, + pedal edema and + edema (Right foot, ankle, leg) Musculoskeletal: Extremities: extremities normal to inspection (Pain on palpation to right foot and ankle.) Skin: + erythema (Right dorsal foot and ankle extending to anterior leg) Trauma: + puncture (Right fourth MTPJ) Neurologic: moves all extremities Psychiatric: Orientation: alert and oriented x 3 Results & Data Vital Signs (Past 12 Hours) Vital Signs Temp Pulse Pulse Resp BP Pulse Ox O2 Del Method 08/02/23 20:09 36.6 C 84 18 124/81 93 Room Air 08/02/23 17:15 93 H 08/02/23 15:42 36.7 C 104 H 20 88/52 L 97 Room Air 08/02/23 11:38 36.5 C 87 16 111/77 98 Room Air
[2023-08-03 01:46] LABS: Hematocrit (blood only) 40.6 % (42.0-52.0); Hemoglobin 13.3 g/dl (14.0-18.0); Mean Corpuscular Hemoglobin 30.9 pg (25.0-34.0); Mean Corpuscular Hgb Conc 32.8 g/dL (32.0-36.0); Mean Corpuscular Volume 94.2 fL (80.0-100.0); Mean Platelet Volume 9.9 fL (9.4-12.4); Platelet Count 210 K/uL (130-400); RDW Coefficient of Variation 14.3 % (11.5-14.5); RDW Standard Deviation 49.7 fL (36.4-46.3); Red Blood Count 4.31 M/uL (4.70-6.10)
[2023-08-03 02:03] LABS: BUN Creatinine Ratio 21.2 (10-20); Calcium 8.3 mg/dl (8.6-10.3); Creatinine Clr Calc Pharmacy 137.4 ml/min; Est GFR (African American) 120.1 ml/min; Est GFR (Non-African American) 103.6 ml/min
[2023-08-03 02:40] LABS: Partial Thromboplastin Ratio 1.3; Partial Thromboplastin Time 37.4 Seconds (21.0-31.0)
[2023-08-03] MEDS: VANCOMYCIN HCL 1,500 MG in SODIUM CHLORIDE 0.9% 500 ML IV SCH ×2 (02:50→16:18)
[2023-08-03] MEDS: oxyCODONE HCL IR 5 MG TAB (IMMEDIATE RELEASE) PO PRN ×2 (05:42→22:00)
[2023-08-03 07:32] LABS: Partial Thromboplastin Ratio 1.3; Partial Thromboplastin Time 35.7 Seconds (21.0-31.0)
[2023-08-03] MEDS: ENALAPRIL MALEATE 10 MG TAB PO SCH (09:55)
[2023-08-03] MEDS: CLOPIDOGREL BISULFATE 75 MG TAB PO SCH (09:55)
[2023-08-03] MEDS: ROSUVASTATIN CALCIUM 20 MG TAB PO SCH (09:56)
[2023-08-03] MEDS: PANTOprazole 40 MG TAB PO SCH (09:56)
[2023-08-03] MEDS: METOPROLOL SUCC 50MG EXT REL TAB PO SCH ×2 (09:56→22:00)
--- NOTE | 2023-08-03 09:56 | Hospitalist Progress Note ---
Date of Service August 03, 2023 Assessment & Plan (1) Cellulitis in diabetic foot: Plan: 62-year-old male with PMH CAD s/p stents, CABG, HTN, dyslipidemia, PAF s/p cardioversion, GERD presented to ER with complaint of right foot redness x 1 day after stepping on nail with puncture through sneaker 4 days ago. Reported tetanus booster 07/2023 In ER afebrile, HR 84-101, other vitals stable. WBC: 10.6, lactate 3.4--> 1.9 Right foot x-ray noted degenerative changes without evidence of acute fracture. Bulk Sugar Handler evaluation noted Continue vancomycin and cefepime Continue pain control (2) DM type 2 (diabetes mellitus, type 2): Plan: A1c: 7.9 on 03/10/2023 HbA1c is 8.2 08/02/23 Continue to hold home Jardiance, glyburide, metformin Patient has been declining insulin sq here DM educator Blood glucose is currently under control. Will continue accuchecks and hold glargine for now He is open to novolog sq if BG is elevated>150 (3) Atrial fibrillation: Plan: History of paroxysmal atrial fibrillation s/p cardioversion 05/2023 Chronically anticoagulated on Eliquis Currently in Afib Continue metoprolol succinate Home eliquis on hold in case surgical procedure is needed this admission Continue heparin drip for now while eliquis is on hold Per Admitting Provider, Patient prescribed metoprolol succinate 75 mg twice daily however has been taking 50 mg in a.m. and 25 mg at bedtime Rate controlled (4) CAD (coronary artery disease): Plan: S/p stent, CABG x3 Per outpatient chart review History cardiac cath 04/30/2023: Significant [place] multivessel disease: Distal LMCA 30%, mid LAD 100%, diagonal 1 is small vessel and diffusely diseased, proximal left circumflex 50% stenosis, OM1 50% stenosis distal to previously placed stent which is patent, proximal through mid RCA 100% occluded (in-stent) grafts 2/3 GUILLEN-LAD and SVG to r PDA widely patent, SVG to diag is 100% flush occluded Continue Plavix, rosuvastatin, metoprolol succinate (5) HTN (hypertension): Plan: Stable Continue metoprolol succinate, ACEI (6) GERD (gastroesophageal reflux disease): Plan: Continue PPI DVT Prophylaxis Hep gtt as above Full Code as per discussion with pt Follows with Dr Thakur for routine care I spent a total of 45 minutes coordinating, documenting and providing care for this patient excluding time spent in performance of separately billed services Admission and Anticipated Discharge Date Admission Date: August 01, 2023 Subjective Patient seen and examined Reports right foot pain is better controlled today Denied fever, chills, nausea, vomiting, abd pain, diarrhea, constipation Denied cough, chest pain, SOB Physical Exam Constitutional: + well hydrated; no acute distress Eyes: PERRL, conjunctivae normal, anicteric sclerae ENMT: external ear and nose normal, oropharynx normal Respiratory: normal respiratory effort, lungs clear to auscultation Cardiovascular: Rate/Rhythm: + irregularly irregular S1 S2 Gastrointestinal (Abdomen): normal bowel sounds, soft, nontender, no hepatosplenomegaly Musculoskeletal: Right foot swelling. Erythema over dorsum extending to lower leg (within markings), with tenderness Puncture wound on dorsum of feet Neurologic: PERRL, EOMI, accommodation nl, no face palsy, no dysarthria Psychiatric: A+Ox3, euthymic affect Results & Data Results & Data Vital Signs (Past 12 Hours) Vital Signs Temp Pulse Pulse Resp BP Pulse Ox O2 Del Method 08/03/23 08:02 37.0 C 90 20 113/71 98 Room Air 08/03/23 03:02 36.4 C L 94 H 18 123/72 97 Room Air 08/03/23 01:08 Room Air 08/02/23 22:00 91 H 08/02/23 23:32 37.1 C 80 18 115/77 95 Room Air Laboratory Results Abnormal lab results 08/02/23 08/02/23 08/02/23 Range/Units 16:52 18:10 20:21 RBC (4.70-6.10) M/uL Hgb (14.0-18.0) g/dl Hct (42.0-52.0) % RDW Std Deviation (36.4-46.3) fL APTT 36.5 H (21.0-31.0) Seconds BUN/Creatinine Ratio (10-20) POC Glucose 119 H 123 H (70-99) mg/dl Calcium (8.6-10.3) mg/dl 08/03/23 08/03/23 08/03/23 Range/Units 01:21 01:21 01:21 RBC 4.31 L (4.70-6.10) M/uL Hgb 13.3 L (14.0-18.0) g/dl Hct 40.6 L (42.0-52.0) % RDW Std Deviation 49.7 H (36.4-46.3) fL APTT 37.4 H (21.0-31.0) Seconds BUN/Creatinine Ratio 21.2 H (10-20) POC Glucose (70-99) mg/dl Calcium 8.3 L (8.6-10.3) mg/dl 08/03/23 08/03/23 Range/Units 06:15 12:17 RBC (4.70-6.10) M/uL Hgb (14.0-18.0) g/dl Hct (42.0-52.0) % RDW Std Deviation (36.4-46.3) fL APTT 35.7 H (21.0-31.0) Seconds BUN/Creatinine Ratio (10-20) POC Glucose 140 H (70-99) mg/dl Calcium (8.6-10.3) mg/dl
[2023-08-03] MEDS: LANTUS PER UNIT CHARGE SQ SCH (09:58)
[2023-08-03] MEDS: INSULIN ASPART PER UNIT CHARGE SC SCH ×3 (10:01→13:17)
[2023-08-03] MEDS: CEFEPIME 2,000 MG in SYRINGE 0 ML IV SCH ×3 (10:01→23:34)
[2023-08-03] MEDS: HEPARIN SODIUM/DEXTROSE 25,000 UNITS/500 ML BAG IV SCH (10:06)
[2023-08-03] MEDS: HYDROmorphone INJ 0.5 MG/0.5 ML SYR IV PRN (13:01)
[2023-08-03 18:22] LABS: Partial Thromboplastin Ratio 1.2
[2023-08-03] MEDS ORDERED: HEPARIN SOD (PORCINE) 1000 UNIT/ML IV ONE (19:03)
[2023-08-03] MEDS ORDERED: HEPARIN IV BOLUS 3,000 UNITS in SYRINGE 0 ML IV ONE (19:15)
[2023-08-03 19:29] LABS: A calco-baum cmplx NotReported Not Detected (NotDetected); Bact fragilis Not Reported Not Detected (NotDetected); C auris Not Reported Not Detected (NotDetected); Calbicans Not Reported Not Detected (NotDetected); Candida glabrata Not Reported Not Detected (NotDetected); Candida krusei Not Reported Not Detected (NotDetected); Cneoformans/gatti Not Reported Not Detected (NotDetected); Cparapsilosis Not Reported Not Detected (NotDetected); Ctropicalis Not Reported Not Detected (NotDetected); E cloacae compx Not Reported Not Detected (NotDetected); Efaecalis Not Reported Not Detected (NotDetected); Efaecium Not Reported Not Detected (NotDetected); Enterobacterales Not Reported Not Detected (NotDetected); Escherichia coli Not Reported Not Detected (NotDetected); H influenzae Not Reported Not Detected (NotDetected); K aerogenes Not Reported Not Detected (NotDetected); Koxytoca Not Reported Not Detected (NotDetected); Kpneumoniae grp Not Reported Not Detected (NotDetected); Lmonocyt Not Reported Not Detected (NotDetected); N meningitidis Not Reported Not Detected (NotDetected); P aeruginosa Not Reported Not Detected (NotDetected); Proteus spp Not Reported Not Detected (NotDetected); Salmonella spp Not Reported Not Detected (NotDetected); Smarcescens Not Reported Not Detected (NotDetected); Staph lugdunensis Not Reported Not Detected (NotDetected); Staph spp. Not Reported Not Detected (NotDetected); Staphaureus Not Reported Not Detected (NotDetected); Staphepi Not Reported Not Detected (NotDetected); Stenmaltophilia Not Reported Not Detected (NotDetected); Strep agal(GrpB) Not Reported Not Detected (NotDetected); Strep pneum Not Reported Not Detected (NotDetected); Strep pyog (GrpA) Not Reported Not Detected (NotDetected); Strep spp Not Reported Not Detected (NotDetected)
--- NOTE | 2023-08-03 21:23 | Orthopedic Progress Note ---
Date of Service August 03, 2023 Assessment & Plan (1) Cellulitis in diabetic foot: Plan: Patient seen, evaluated, and treated. Reviewed positive signs of healing and continued decrease in cellulitis. Significant decrease in erythema and edema noted. Will continue to follow while Patient remains in house. Thank you for allowing me to participate in this Patients care. (2) DM type 2 (diabetes mellitus, type 2): Admission and Anticipated Discharge Date Admission Date: August 01, 2023 Subjective Patient seen at bedside resting comfortably. Patient reports foot is continuing to feel better today. His pain is controlled and he inquires about discharge. Review of Systems Review of Systems: All systems reviewed & are unremarkable except as noted in Subjective Physical Exam Constitutional: well developed, well nourished, cooperative and comfortable Eyes: normal visual terrell by confrontation Neck: normal visual inspection and trachea midline Cardiovascular: Rate/Rhythm: + irregularly irregular Vessels: posterior tibial pulses present and dorsalis pedis pulses present Extremities: normal capillary refill, + pedal edema and + edema (Right foot, ankle, leg) Musculoskeletal: Extremities: extremities normal to inspection (Pain on palpation to right foot and ankle.) Skin: + erythema (Right dorsal foot and ankle extending to anterior leg) Trauma: + puncture (Right fourth MTPJ) Neurologic: moves all extremities Psychiatric: Orientation: alert and oriented x 3 Results & Data Vital Signs (Past 12 Hours) Vital Signs Temp Pulse Pulse Resp BP Pulse Ox O2 Del Method 08/03/23 20:26 37.0 C 102 H 18 117/73 97 Room Air 08/03/23 18:09 83 08/03/23 17:31 36.8 C 62 16 123/77 97 Room Air 08/03/23 12:01 37.1 C 67 16 125/77 96 Room Air
[2023-08-04 01:52] LABS: Hematocrit (blood only) 37.3 % (42.0-52.0); Hemoglobin 12.7 g/dl (14.0-18.0); Mean Corpuscular Hemoglobin 31.1 pg (25.0-34.0); Mean Corpuscular Volume 91.2 fL (80.0-100.0); Mean Platelet Volume 9.5 fL (9.4-12.4); Platelet Count 232 K/uL (130-400); RDW Coefficient of Variation 14.1 % (11.5-14.5); RDW Standard Deviation 47.4 fL (36.4-46.3); Red Blood Count 4.09 M/uL (4.70-6.10); White Blood Count 7.21 K/ul (4.8-10.8)
[2023-08-04 02:12] LABS: BUN Creatinine Ratio 17.9 (10-20); C Reactive Protein 6.84 mg/dl (0-0.5); Calcium 8.3 mg/dl (8.6-10.3); Creatinine Clr Calc Pharmacy 116.2 ml/min; Est GFR (African American) 112.1 ml/min; Est GFR (Non-African American) 96.7 ml/min; Potassium 3.6 mmol/L (3.5-5.1)
[2023-08-04 02:33] LABS: Partial Thromboplastin Ratio 1.3; Partial Thromboplastin Time 36.2 Seconds (21.0-31.0)
[2023-08-04] MEDS: HEPARIN SODIUM/DEXTROSE 25,000 UNITS/500 ML BAG IV SCH ×2 (03:23→18:52)
[2023-08-04] MEDS: VANCOMYCIN HCL 1,500 MG in SODIUM CHLORIDE 0.9% 500 ML IV SCH ×2 (04:00→15:01)
[2023-08-04] MEDS: oxyCODONE HCL IR 5 MG TAB (IMMEDIATE RELEASE) PO PRN ×2 (08:03→20:26)
[2023-08-04] MEDS: ROSUVASTATIN CALCIUM 20 MG TAB PO SCH (08:03)
[2023-08-04] MEDS: PANTOprazole 40 MG TAB PO SCH (08:03)
[2023-08-04] MEDS: CLOPIDOGREL BISULFATE 75 MG TAB PO SCH (08:03)
[2023-08-04] MEDS: ENALAPRIL MALEATE 10 MG TAB PO SCH (08:03)
[2023-08-04] MEDS: METOPROLOL SUCC 50MG EXT REL TAB PO SCH ×2 (08:03→21:10)
[2023-08-04] MEDS: CEFEPIME 2,000 MG in SYRINGE 0 ML IV SCH ×2 (08:07→15:02)
[2023-08-04 09:44] LABS: Partial Thromboplastin Ratio 1.8
--- NOTE | 2023-08-04 10:17 | Pharmacy Report ---
Pharmacy PK ABX Note - Date of Service August 04, 2023 - Assessment and Plan Assessment * 62 year old M receiving vancomycin/cefepime for treatment of foot cellulitis after stepping on nail with puncture through sneaker 4 days ago. * Pertinent microbiologic data includes: 1 of 2 blood cultures from 08/01 with GPR with initial growth noted 9/3 PM. BCID2 negative. Likely contaminant. * SCr stable Vancomycin * Target AUC/DORA of 400-600 mg/L.hr * Random level today of 14.7 mcg/mL associated with an AUC of 429 mg/L.hr * Continue current dose Plan * Continue vancomycin 1500 mg q12H * Random level 08/06 @ 1100 Pharmacy will continue to follow and will adjust dose/frequency as necessary. Thank you. Pharmacy has transitioned to AUC monitoring for vancomycin. AUC/DORA is the preferred PK/PD target and is associated with decreased risk of nephrotoxicity compared to traditional trough targets.
--- NOTE | 2023-08-04 10:37 | Hospitalist Progress Note ---
Date of Service August 04, 2023 Assessment & Plan (1) Cellulitis in diabetic foot: Plan: 62-year-old male with PMH CAD s/p stents, CABG, HTN, dyslipidemia, PAF s/p cardioversion, GERD presented to ER with complaint of right foot redness x 1 day after stepping on nail with puncture through sneaker 4 days ago. Reported tetanus booster 07/2023 In ER afebrile, HR 84-101, other vitals stable. WBC: 10.6, lactate 3.4--> 1.9 Right foot x-ray noted degenerative changes without evidence of acute fracture. Cardiology Fellow evaluation noted Continue vancomycin and cefepime Continue pain control 1 bottle of blood culture from admission noted GPR. ID panel PCR negative. Will repeat blood culture and monitor/follow up speciation to see if true bacteremia or contaminant (2) DM type 2 (diabetes mellitus, type 2): Plan: A1c: 7.9 on 03/10/2023 HbA1c is 8.2 08/02/23 Continue to hold home Jardiance, glyburide, metformin Patient has been declining insulin sq here Provided DM education Blood glucose is currently under control. Will continue accuchecks and hold glargine for now He is open to novolog sliding scale sq if BG is elevated>150 (3) Atrial fibrillation: Plan: History of paroxysmal atrial fibrillation s/p cardioversion 05/2023 Chronically anticoagulated on Eliquis Currently in Afib Continue metoprolol succinate Home eliquis on hold in case surgical procedure is needed this admission Continue heparin drip for now while eliquis is on hold Rate controlled (4) CAD (coronary artery disease): Plan: S/p stent, CABG x3 Per outpatient chart review History cardiac cath 04/30/2023: Significant [place] multivessel disease: Distal LMCA 30%, mid LAD 100%, diagonal 1 is small vessel and diffusely diseased, proximal left circumflex 50% stenosis, OM1 50% stenosis distal to previously placed stent which is patent, proximal through mid RCA 100% occluded (in-stent) grafts 2/3 GUILLEN-LAD and SVG to r PDA widely patent, SVG to diag is 100% flush occluded Continue Plavix, rosuvastatin, metoprolol succinate (5) HTN (hypertension): Plan: Stable Continue metoprolol succinate, ACEI (6) GERD (gastroesophageal reflux disease): Plan: Continue PPI DVT Prophylaxis Hep gtt as above Full Code as per discussion with pt Follows with Dr Thakur for routine care I spent a total of 40 minutes coordinating, documenting and providing care for this patient excluding time spent in performance of separately billed services Admission and Anticipated Discharge Date Admission Date: August 01, 2023 Subjective Patient seen and examined Reports right foot pain is controlled Reports right leg swelling Denied fever, chills, nausea, vomiting, abd pain, diarrhea, constipation Denied cough, chest pain, SOB Physical Exam Constitutional: + well hydrated; no acute distress Eyes: PERRL, conjunctivae normal, anicteric sclerae ENMT: external ear and nose normal, oropharynx normal Respiratory: normal respiratory effort, lungs clear to auscultation Cardiovascular: Rate/Rhythm: + irregularly irregular S1 S2 Gastrointestinal (Abdomen): normal bowel sounds, soft, nontender, no hepatosplenomegaly Musculoskeletal: Right foot edema. Erythema over dorsum extending to lower leg (improved within markings), with tenderness Puncture wound on dorsum of feet Neurologic: PERRL, EOMI, accommodation nl, no face palsy, no dysarthria Psychiatric: A+Ox3, euthymic affect Results & Data Results & Data Vital Signs (Past 12 Hours) Vital Signs Temp Pulse Pulse Resp BP Pulse Ox O2 Del Method 08/04/23 08:00 36.4 C L 87 16 116/75 99 Room Air 08/04/23 07:23 84 08/04/23 04:39 36.7 C 87 18 118/79 98 Room Air 08/03/23 23:37 36.9 C 92 H 18 110/75 96 Room Air Laboratory Results Abnormal lab results 08/03/23 08/03/23 08/03/23 Range/Units 12:17 17:01 17:37 RBC (4.70-6.10) M/uL Hgb (14.0-18.0) g/dl Hct (42.0-52.0) % RDW Std Deviation (36.4-46.3) fL APTT 35.0 H (21.0-31.0) Seconds Sodium (136-145) mmol/L Glucose (70-99(Fasting)) mg/dl POC Glucose 140 H 120 H (70-99) mg/dl Calcium (8.6-10.3) mg/dl C-Reactive Protein (0-0.5) mg/dl 08/03/23 08/04/23 08/04/23 Range/Units 20:44 01:20 01:22 RBC (4.70-6.10) M/uL Hgb (14.0-18.0) g/dl Hct (42.0-52.0) % RDW Std Deviation (36.4-46.3) fL APTT 36.2 H (21.0-31.0) Seconds Sodium 135 L (136-145) mmol/L Glucose 123 H (70-99(Fasting)) mg/dl POC Glucose 157 H (70-99) mg/dl Calcium 8.3 L (8.6-10.3) mg/dl C-Reactive Protein 6.84 H (0-0.5) mg/dl 08/04/23 08/04/23 08/04/23 Range/Units 01:22 08:28 08:50 RBC 4.09 L (4.70-6.10) M/uL Hgb 12.7 L (14.0-18.0) g/dl Hct 37.3 L (42.0-52.0) % RDW Std Deviation 47.4 H (36.4-46.3) fL APTT 50.0 H* (21.0-31.0) Seconds Sodium (136-145) mmol/L Glucose (70-99(Fasting)) mg/dl POC Glucose 119 H (70-99) mg/dl Calcium (8.6-10.3) mg/dl C-Reactive Protein (0-0.5) mg/dl
[2023-08-04] MEDS: HYDROmorphone INJ 0.5 MG/0.5 ML SYR IV PRN (13:13)
[2023-08-04] MEDS: INSULIN ASPART PER UNIT CHARGE SC SCH ×3 (13:21→20:38)
--- NOTE | 2023-08-04 17:11 | Electrocardiogram Report ---
Test Reason : Blood Pressure : / mmHG Vent. Rate : 116 BPM Atrial Rate : 129 BPM P-R Int : 000 ms QRS Dur : 088 ms QT Int : 342 ms P-R-T Axes : 000 002 094 degrees QTc Int : 475 ms Atrial fibrillation with rapid ventricular response Low voltage QRS Nonspecific T wave abnormality Abnormal ECG When compared with ECG of 14-MAY-2023 08:38, Atrial fibrillation has replaced Sinus rhythm QRS duration has decreased Confirmed by Sherman Maher ([id number]) on 08/04/2023 5:11:16 PM Referred By: REFERRED SELF Confirmed By:Sherman Maher
--- NOTE | 2023-08-04 20:04 | Electrocardiogram Report ---
Test Reason : Blood Pressure : / mmHG Vent. Rate : 087 BPM Atrial Rate : 234 BPM P-R Int : 000 ms QRS Dur : 096 ms QT Int : 366 ms P-R-T Axes : 000 -22 079 degrees QTc Int : 440 ms Atrial fibrillation with premature ventricular or aberrantly conducted complexes Low voltage QRS Nonspecific T wave abnormality Abnormal ECG When compared with ECG of 01-AUG-2023 13:51, No significant change Confirmed by Sherman Maher ([id number]) on 08/04/2023 8:03:50 PM Referred By: REFERRED SELF Confirmed By:Sherman Maher
[2023-08-05] MEDS: CEFEPIME 2,000 MG in SYRINGE 0 ML IV SCH ×3 (00:15→15:09)
[2023-08-05] MEDS: VANCOMYCIN HCL 1,500 MG in SODIUM CHLORIDE 0.9% 500 ML IV SCH ×2 (03:06→15:09)
[2023-08-05] MEDS: oxyCODONE HCL IR 5 MG TAB (IMMEDIATE RELEASE) PO PRN ×3 (03:08→21:00)
[2023-08-05] MEDS: HYDROmorphone INJ 0.5 MG/0.5 ML SYR IV PRN (06:17)
[2023-08-05] MEDS: INSULIN ASPART PER UNIT CHARGE SC SCH ×4 (07:57→22:47)
[2023-08-05] MEDS: PANTOprazole 40 MG TAB PO SCH (08:34)
[2023-08-05] MEDS: ROSUVASTATIN CALCIUM 20 MG TAB PO SCH (08:34)
[2023-08-05] MEDS: CLOPIDOGREL BISULFATE 75 MG TAB PO SCH (08:34)
[2023-08-05 08:57] LABS: Hematocrit (blood only) 41.7 % (42.0-52.0); Hemoglobin 13.4 g/dl (14.0-18.0); Mean Corpuscular Hemoglobin 30.2 pg (25.0-34.0); Mean Corpuscular Hgb Conc 32.1 g/dL (32.0-36.0); Mean Corpuscular Volume 94.1 fL (80.0-100.0); Mean Platelet Volume 9.5 fL (9.4-12.4); Platelet Count 258 K/uL (130-400); RDW Coefficient of Variation 13.9 % (11.5-14.5); RDW Standard Deviation 48.9 fL (36.4-46.3); Red Blood Count 4.43 M/uL (4.70-6.10); White Blood Count 7.42 K/ul (4.8-10.8)
[2023-08-05] MEDS: METOPROLOL SUCC 50MG EXT REL TAB PO SCH ×2 (09:15→22:04)
[2023-08-05] MEDS: ENALAPRIL MALEATE 10 MG TAB PO SCH (09:16)
--- NOTE | 2023-08-05 09:31 | Hospitalist Progress Note ---
Date of Service August 05, 2023 Assessment & Plan (1) Cellulitis in diabetic foot: Plan: 62-year-old male with PMH CAD s/p stents, CABG, HTN, dyslipidemia, PAF s/p cardioversion, GERD presented to ER with complaint of right foot redness x 1 day after stepping on nail with puncture through sneaker 4 days ago. Reported tetanus booster 07/2023 In ER afebrile, HR 84-101, other vitals stable. WBC: 10.6, lactate 3.4--> 1.9 Right foot x-ray noted degenerative changes without evidence of acute fracture. Kickboxing Instructor evaluation noted Continue vancomycin and cefepime Continue pain control 1 bottle of blood culture from admission noted GPR. ID panel PCR negative. Possibly contaminant but will follow up repeat blood culture (2) DM type 2 (diabetes mellitus, type 2): Plan: A1c: 7.9 on 03/10/2023 HbA1c is 8.2 08/02/23 Continue to hold home Jardiance, glyburide, metformin Patient has been declining insulin sq here Provided DM education Blood glucose is currently under control. Will continue accuchecks and hold glargine for now He is open to novolog sliding scale sq if BG is elevated>150 (3) Atrial fibrillation: Plan: History of paroxysmal atrial fibrillation s/p cardioversion 05/2023 Chronically anticoagulated on Eliquis Currently in Afib Continue metoprolol succinate Home eliquis on hold in case surgical procedure is needed this admission Continue heparin drip for now while eliquis is on hold Rate controlled (4) CAD (coronary artery disease): Plan: S/p stent, CABG x3 Per outpatient chart review History cardiac cath 04/30/2023: Significant [place] multivessel disease: Distal LMCA 30%, mid LAD 100%, diagonal 1 is small vessel and diffusely diseased, proximal left circumflex 50% stenosis, OM1 50% stenosis distal to previously placed stent which is patent, proximal through mid RCA 100% occluded (in-stent) grafts 2/3 GUILLEN-LAD and SVG to r PDA widely patent, SVG to diag is 100% flush occluded Continue Plavix, rosuvastatin, metoprolol succinate (5) HTN (hypertension): Plan: Stable Continue metoprolol succinate, ACEI (6) GERD (gastroesophageal reflux disease): Plan: Continue PPI DVT Prophylaxis Hep gtt as above Full Code as per discussion with pt Follows with Dr Thakur for routine care I spent a total of 40 minutes coordinating, documenting and providing care for this patient excluding time spent in performance of separately billed services Admission and Anticipated Discharge Date Admission Date: August 01, 2023 Subjective Patient seen and examined Reports right foot pain is controlled but worsens once he puts his leg down Denied fever, chills, nausea, vomiting, abd pain, diarrhea, constipation Denied cough, chest pain, SOB Physical Exam Constitutional: + well hydrated; no acute distress Eyes: PERRL, conjunctivae normal, anicteric sclerae ENMT: external ear and nose normal, oropharynx normal Respiratory: normal respiratory effort, lungs clear to auscultation Cardiovascular: Rate/Rhythm: + irregularly irregular S1 S2 Gastrointestinal (Abdomen): normal bowel sounds, soft, nontender, no hepatosplenomegaly Musculoskeletal: Right foot edema. Erythema over dorsum extending to lower leg (improved within markings), with tenderness Neurologic: PERRL, EOMI, accommodation nl, no face palsy, no dysarthria Psychiatric: A+Ox3, euthymic affect Results & Data Results & Data Vital Signs (Past 12 Hours) Vital Signs Temp Pulse Pulse Pulse Resp BP Pulse Ox 08/05/23 07:25 36.6 C 89 15 97/63 L 95 08/05/23 07:03 114 H 08/05/23 04:00 36.7 C 100 H 20 118/78 98 08/04/23 23:59 36.5 C 88 18 113/75 98 O2 Del Method 08/05/23 07:25 Room Air 08/05/23 07:03 08/05/23 04:00 Room Air 08/04/23 23:59 Room Air Laboratory Results Abnormal lab results 08/04/23 08/04/23 08/04/23 Range/Units 12:16 17:12 20:24 RBC (4.70-6.10) M/uL Hgb (14.0-18.0) g/dl Hct (42.0-52.0) % RDW Std Deviation (36.4-46.3) fL APTT (21.0-31.0) Seconds Glucose (70-99(Fasting)) mg/dl POC Glucose 125 H 131 H 140 H (70-99) mg/dl C-Reactive Protein (0-0.5) mg/dl 08/05/23 08/05/23 08/05/23 Range/Units 07:54 08:15 08:15 RBC 4.43 L (4.70-6.10) M/uL Hgb 13.4 L (14.0-18.0) g/dl Hct 41.7 L (42.0-52.0) % RDW Std Deviation 48.9 H (36.4-46.3) fL APTT 58.7 H* (21.0-31.0) Seconds Glucose (70-99(Fasting)) mg/dl POC Glucose 111 H (70-99) mg/dl C-Reactive Protein (0-0.5) mg/dl 08/05/23 Range/Units 08:15 RBC (4.70-6.10) M/uL Hgb (14.0-18.0) g/dl Hct (42.0-52.0) % RDW Std Deviation (36.4-46.3) fL APTT (21.0-31.0) Seconds Glucose 124 H (70-99(Fasting)) mg/dl POC Glucose (70-99) mg/dl C-Reactive Protein 4.83 H (0-0.5) mg/dl
[2023-08-05 09:51] LABS: Partial Thromboplastin Ratio 2.1
[2023-08-05 09:59] LABS: BUN Creatinine Ratio 14.9 (10-20); C Reactive Protein 4.83 mg/dl (0-0.5); Calcium 8.8 mg/dl (8.6-10.3); Creatinine Clr Calc Pharmacy 123.7 ml/min; Est GFR (African American) 114.6 ml/min; Est GFR (Non-African American) 98.9 ml/min; Partial Thromboplastin Time 58.7 Seconds (21.0-31.0); Phosphorus 2.7 mg/dl (2.5-4.9); Potassium 4.2 mmol/L (3.5-5.1)
[2023-08-05] MEDS: HEPARIN SODIUM/DEXTROSE 25,000 UNITS/500 ML BAG IV SCH (12:16)
--- NOTE | 2023-08-05 23:18 | Orthopedic Progress Note ---
Date of Service August 05, 2023 Assessment & Plan (1) Cellulitis in diabetic foot: Plan: Patient seen, evaluated, and treated. Excellent signs of healing and continued decrease in cellulitis. Thank you for allowing me to participate in this Patients care. (2) DM type 2 (diabetes mellitus, type 2): Admission and Anticipated Discharge Date Admission Date: August 01, 2023 Subjective Patient seen at bedside resting comfortably. Right foot pain is well controlled. Patient reports no complaints. Review of Systems Review of Systems: All systems reviewed & are unremarkable except as noted in Subjective Physical Exam Constitutional: well developed, well nourished, cooperative and comfortable Eyes: normal visual terrell by confrontation Neck: normal visual inspection and trachea midline Cardiovascular: Rate/Rhythm: + irregularly irregular Vessels: posterior tibial pulses present and dorsalis pedis pulses present Extremities: normal capillary refill, + pedal edema and + edema (Right foot, ankle, leg) Musculoskeletal: Extremities: extremities normal to inspection (Pain on palpation to right foot and ankle.) Skin: + erythema (Right dorsal foot ) Trauma: + puncture (Right fourth MTPJ) Neurologic: moves all extremities Psychiatric: Orientation: alert and oriented x 3 Results & Data Vital Signs (Past 12 Hours) Vital Signs Temp Pulse Pulse Pulse Resp BP Pulse Ox 08/05/23 19:11 36.8 C 101 H 18 96/58 L 99 08/05/23 15:00 99 H 08/05/23 15:50 36.7 C 84 18 122/76 97 08/05/23 11:23 36.8 C 97 H 22 121/71 98 O2 Del Method 08/05/23 19:11 Room Air 08/05/23 15:00 08/05/23 15:50 Room Air 08/05/23 11:23 Room Air
[2023-08-06] MEDS: CEFEPIME 2,000 MG in SYRINGE 0 ML IV SCH ×3 (00:55→15:33)
[2023-08-06] MEDS: VANCOMYCIN HCL 1,500 MG in SODIUM CHLORIDE 0.9% 500 ML IV SCH ×3 (04:08→20:46)
[2023-08-06] MEDS: oxyCODONE HCL IR 5 MG TAB (IMMEDIATE RELEASE) PO PRN ×2 (04:09→20:46)
[2023-08-06] MEDS: HEPARIN SODIUM/DEXTROSE 25,000 UNITS/500 ML BAG IV SCH ×2 (05:38→20:45)
[2023-08-06 08:41] LABS: Hematocrit (blood only) 39.8 % (42.0-52.0); Hemoglobin 13.5 g/dl (14.0-18.0); Mean Corpuscular Hemoglobin 31.3 pg (25.0-34.0); Mean Corpuscular Hgb Conc 33.9 g/dL (32.0-36.0); Mean Corpuscular Volume 92.1 fL (80.0-100.0); Mean Platelet Volume 9.3 fL (9.4-12.4); Platelet Count 271 K/uL (130-400); RDW Coefficient of Variation 13.8 % (11.5-14.5); RDW Standard Deviation 47.2 fL (36.4-46.3); Red Blood Count 4.32 M/uL (4.70-6.10); White Blood Count 6.32 K/ul (4.8-10.8)
[2023-08-06 09:04] LABS: Partial Thromboplastin Ratio 2.1
[2023-08-06 09:09] LABS: Partial Thromboplastin Time 58.5 Seconds (21.0-31.0)
[2023-08-06 09:14] LABS: BUN Creatinine Ratio 17.1 (10-20); C Reactive Protein 3.73 mg/dl (0-0.5); Calcium 8.7 mg/dl (8.6-10.3); Creatinine Clr Calc Pharmacy 130.1 ml/min; Est GFR (African American) 117.2 ml/min; Est GFR (Non-African American) 101.1 ml/min; Phosphorus 2.4 mg/dl (2.5-4.9); Potassium 4.2 mmol/L (3.5-5.1)
[2023-08-06] MEDS: INSULIN ASPART PER UNIT CHARGE SC SCH ×4 (09:36→20:40)
[2023-08-06] MEDS: METOPROLOL SUCC 50MG EXT REL TAB PO SCH ×2 (09:37→20:46)
[2023-08-06] MEDS: CLOPIDOGREL BISULFATE 75 MG TAB PO SCH (09:38)
[2023-08-06] MEDS: PANTOprazole 40 MG TAB PO SCH (09:38)
[2023-08-06] MEDS: ENALAPRIL MALEATE 10 MG TAB PO SCH (09:38)
[2023-08-06] MEDS: ROSUVASTATIN CALCIUM 20 MG TAB PO SCH (09:39)
--- NOTE | 2023-08-06 11:59 | Pharmacy Report ---
Pharmacy PK ABX Note - Date of Service August 06, 2023 - Assessment and Plan Assessment * 62 year old M receiving vancomycin/cefepime for treatment of foot cellulitis after stepping on nail with puncture through sneaker 4 days ago. * Pertinent microbiologic data includes: 1 of 2 blood cultures from 08/01 with diptheroids with initial growth noted 9/3 PM. BCID2 negative. Likely contaminant. Repeat blood cultures NGTD. * SCr stable * Day # 6 vancomycin Plan Vancomycin * Random level drawn today on 1500mg IV q12h regimen- 11.4mcg/mL (~ 7hr level), subtherapeutic. Predicted to achieve ssAUC 336mg/L.hr. * Increase dose to 1500mg IV q8h. Predicted to achieve ssAUC 504mg/L.hr (94% probability). * Repeat random level tomorrow AM at steady state of new regimen. Pharmacy will continue to follow and will adjust dose/frequency as necessary. Thank you. Pharmacy has transitioned to AUC monitoring for vancomycin. AUC/DORA is the preferred PK/PD target and is associated with decreased risk of nephrotoxicity compared to traditional trough targets.
--- NOTE | 2023-08-06 12:41 | Hospitalist Progress Note ---
Date of Service August 06, 2023 Assessment & Plan (1) Cellulitis in diabetic foot: Plan: per admitting service notes: 62-year-old male with PMH CAD s/p stents, CABG, HTN, dyslipidemia, PAF s/p cardioversion, GERD presented to ER with complaint of right foot redness x 1 day after stepping on nail with puncture through sneaker 4 days ago. Reported tetanus booster 07/2023 In ER afebrile, HR 84-101, other vitals stable. WBC: 10.6, lactate 3.4--> 1.9 Right foot x-ray noted degenerative changes without evidence of acute fracture. 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 ID panel PCR negative. Possibly contaminant but will follow up repeat blood culture 08/06 CT Foot with contrast ID consult continue Vanco + Cefepime Graduate Civil Engineer also on board (2) DM type 2 (diabetes mellitus, type 2): Plan: A1c: 7.9 on 03/10/2023 HbA1c is 8.2 08/02/23 Continue to hold home Jardiance, glyburide, metformin Patient has been declining insulin sq here Provided DM education Blood glucose is currently under control. Will continue accuchecks and hold glargine for now He is open to novolog sliding scale sq if BG is elevated>150 08/06 BSG 136 continue to monitor (3) Atrial fibrillation: Plan: History of paroxysmal atrial fibrillation s/p cardioversion 05/2023 Chronically anticoagulated on Eliquis Currently in Afib Continue metoprolol succinate Home eliquis on hold in case surgical procedure is needed this admission Continue heparin drip for now while eliquis is on hold Rate controlled (4) CAD (coronary artery disease): Plan: S/p stent, CABG x3 Per outpatient chart review History cardiac cath 04/30/2023: Significant [place] multivessel disease: Distal LMCA 30%, mid LAD 100%, diagonal 1 is small vessel and diffusely diseased, proximal left circumflex 50% stenosis, OM1 50% stenosis distal to previously placed stent which is patent, proximal through mid RCA 100% occluded (in-stent) grafts 2/3 GUILLEN-LAD and SVG to r PDA widely patent, SVG to diag is 100% flush occluded Continue Plavix, rosuvastatin, metoprolol succinate (5) HTN (hypertension): Plan: Stable Continue metoprolol succinate, ACEI (6) GERD (gastroesophageal reflux disease): Plan: Continue PPI DVT Prophylaxis Hep gtt as above Full Code as per discussion with pt Follows with Dr Thakur for routine care plan of care discussed with patient in detail and at length all questions answered he is understanding, agreeable, comfortable with the plan of care Admission and Anticipated Discharge Date Admission Date: August 01, 2023 Subjective ff up for R foot puncture wound with cellulitis, etc seen resting in bed, comfortable states R Lower leg and foot redness,swelling and pain improving dorsal aspect warp dyeing vat tender though no fever/chills no chest pain, dyspnea, palpitations, dizziness no other symptoms Review of Systems Review of Systems: all noted and negative except for above Physical Exam Physical Exam: General- oriented x 3, not in distress, speaks in sentences with no effort or accessory muscle use Eyes- anicteric Neck- no JVD Lungs- clear breath sounds bilaterally, no rales/wheezes Heart- normal rate, regular rhythm; no murmurs Abdomen- normal bowel sounds, nondistended, soft, nontender Extremities- R foot, ankle with moderate edema, mild erythema, significant tenderness over dorsal aspect R lower leg with mild edema, no tenderness, erythema receding from demarcation line Neuro- alert, oriented x 3; no gross focal neurologic deficits Skin- warm & dry Results & Data Results & Data Vital Signs (Past 12 Hours) Vital Signs Temp Pulse Pulse Resp BP Pulse Ox O2 Del Method 08/06/23 11:33 36.8 C 68 12 112/71 95 Room Air 08/06/23 07:49 36.6 C 90 16 120/80 98 Room Air 08/06/23 04:33 36.6 C 79 20 119/80 98 Room Air all noted and reviewed including below
[2023-08-06] MEDS ORDERED: OPTIRAY 320 100ml IV ONE (13:53)
[2023-08-06] MEDS: HYDROmorphone INJ 0.5 MG/0.5 ML SYR IV PRN (14:07)
[2023-08-06] MEDS: ADVANCED PROBIOTIC 1250 MG CAPSULE PO SCH (15:32)
[2023-08-06] MEDS: SODIUM CHLORIDE 0.9% 1,000 ML IV SCH (15:33)
--- NOTE | 2023-08-06 16:56 | CT Scan Report ---
CT foot RT w con CT DOSE: 387.59 mGy.cm CLINICAL HISTORY: puncture wound, cellulitis, r/o abscess TECHNIQUE: Multiaxial CT images the right foot were performed without contrast and reformatted in the sagittal and coronal planes. A dose lowering technique was utilized adhering to the principles of A UMA. COMPARISON STUDY: Right foot radiograph 08/01/2023. FINDINGS: There is a nondisplaced fracture at the base of the right fourth toe proximal phalanx. No d efinite intra-articular extension. There are few punctate metallic foreign bodies within the fracture site and the adjacent dorsal soft tissues. Soft tissue swelling within the dorsal and lateral aspect s of the foot and ankle most pronounced at the fourth MTP joint. No definite loculated fluid collecti ons to suggest an abscess at this time. No bony destructive changes identified. No dislocation. Advan danuta degenerative changes at the first MTP joint. The Lisfranc joint is intact. IMPRESSION: 1. Nondisplaced fracture at the base the right fourth toe proximal phalanx. 2. There are few punctate metallic foreign bodies within the fracture site and the adjacent dorsal so ft tissues. 3. Soft tissue swelling within the dorsal and lateral aspect of the foot and ankle most pronounced at the fourth MTP joint. 4. No definite loculated fluid collections to suggest an abscess. ACT 112: Negative or not required by law. Electronically signed by: Greg Tristan M.D. 08/06/2023 4:54 PM
[2023-08-07] MEDS: CEFEPIME 2,000 MG in SYRINGE 0 ML IV SCH ×2 (00:03→09:33)
[2023-08-07] MEDS: SODIUM CHLORIDE 0.9% 1,000 ML IV SCH ×2 (03:09→15:54)
[2023-08-07] MEDS: HEPARIN SODIUM/DEXTROSE 25,000 UNITS/500 ML BAG IV SCH ×2 (03:09→15:59)
[2023-08-07] MEDS: VANCOMYCIN HCL 1,500 MG in SODIUM CHLORIDE 0.9% 500 ML IV SCH ×2 (04:18→12:30)
[2023-08-07] MEDS: INSULIN ASPART PER UNIT CHARGE SC SCH ×4 (08:59→20:57)
[2023-08-07] MEDS: ADVANCED PROBIOTIC 1250 MG CAPSULE PO SCH (09:34)
[2023-08-07] MEDS: PANTOprazole 40 MG TAB PO SCH (09:34)
[2023-08-07] MEDS: CLOPIDOGREL BISULFATE 75 MG TAB PO SCH (09:34)
[2023-08-07] MEDS: ENALAPRIL MALEATE 10 MG TAB PO SCH (09:34)
[2023-08-07] MEDS: ROSUVASTATIN CALCIUM 20 MG TAB PO SCH (09:34)
[2023-08-07] MEDS: METOPROLOL SUCC 50MG EXT REL TAB PO SCH ×2 (09:34→20:57)
[2023-08-07 09:37] LABS: BUN Creatinine Ratio 14.3 (10-20); Calcium 9.2 mg/dl (8.6-10.3); Creatinine Clr Calc Pharmacy 118.8 ml/min; Est GFR (African American) 112.7 ml/min; Est GFR (Non-African American) 97.3 ml/min; Potassium 4.4 mmol/L (3.5-5.1)
[2023-08-07 10:03] LABS: Partial Thromboplastin Ratio 1.9
[2023-08-07 10:07] LABS: Partial Thromboplastin Time 52.8 Seconds (21.0-31.0)
[2023-08-07] MEDS ORDERED: VANCOMYCIN LEVEL ONE (11:00)
--- NOTE | 2023-08-07 12:06 | Pharmacy Report ---
Pharmacy PK ABX Note - Date of Service August 07, 2023 - Assessment and Plan Assessment * 62 year old M receiving vancomycin/cefepime for treatment of foot cellulitis after stepping on nail with puncture through sneaker 4 days ago. * Pertinent microbiologic data includes: 1 of 2 blood cultures from 08/01 with diptheroids with initial growth noted 9/3 PM. BCID2 negative. Likely contaminant. Repeat blood cultures NGTD. Patient remains afebrile. * SCr stable * ID consulted on 08/06 - awaiting recs * Day # 7 vancomycin Plan Vancomycin * Current regimen: 1500 mg IV every 8 hours * Trough level obtained 08/07/23 resulted as 12.6 mcg/mL. This is predicted to achieve target AUC/DORA of 400-600 mg/L.hr * Predicted AUC at steady state: 496 mg/L.hr * Continue 1500 mg IV every 8 hours * Will repeat level in the next 48-72 hours if therapy is continued and/or shirley nge in patient clinical status Cefepime * 2 g IV q8h Pharmacy will continue to follow and will adjust dose/frequency as necessary. Thank you. Pharmacy has transitioned to AUC monitoring for vancomycin. AUC/DORA is the preferred PK/PD target and is associated with decreased risk of nephrotoxicity compared to traditional trough targets.
[2023-08-07] MEDS ORDERED: MEROPENEM 1,000 MG in SYRINGE 0 ML IV SCH (14:15)
[2023-08-07] MEDS: MEROPENEM 500 MG in SYRINGE 0 ML IV SCH ×2 (16:33→20:57)
--- NOTE | 2023-08-07 18:27 | CT Scan Report ---
RIGHT FOOT CT CT DOSE: 494.63 mGy.cm HISTORY: Follow up up, right foot cellulitis TECHNIQUE: Multiaxial CT images of the right foot were performed and reformatted in the sagittal and coronal plane without the use of contrast. A dose lowering technique was utilized adhering to the pr inciples of ASHLI. COMPARISON: Right foot CT 08/06/2023. FINDINGS: There is a nondisplaced fracture at the base of the right fourth toe proximal phalanx, unch anged. No definite intra-articular extension. There are few punctate metallic foreign bodies within t he fracture site and the adjacent dorsal soft tissues again noted. Soft tissue swelling within the do rsal and lateral aspects of the foot and ankle most pronounced at the fourth MTP joint. No definite l oculated fluid collections to suggest an abscess at this time. No bony destructive changes identified . No dislocation. Advanced degenerative changes at the first MTP joint. The Lisfranc joint is intact. IMPRESSION: 1. Nondisplaced fracture at the base of the right fourth toe proximal phalanx, unchanged. 2. There are few punctate metallic foreign bodies within the fracture site and the adjacent dorsal so ft tissues of the fourth toe. 3. Soft tissue swelling within the dorsal and lateral aspect of the foot and ankle most pronounced at the fourth MTP joint. 4. No definite loculated fluid collections to suggest an abscess. ACT 112: Negative or not required by law. Electronically signed by: Greg Tristan M.D. 08/07/2023 6:24 PM
--- NOTE | 2023-08-07 18:27 | Hospitalist Progress Note ---
Date of Service August 07, 2023 Assessment & Plan (1) Cellulitis in diabetic foot: Plan: RIGHT FOOT PUNCTURE WOUND RIGHT FOOT AND LOWER LEG CELLULITIS BACTEREMIA, DIPHTHEROIDS per admitting service notes: 62-year-old male with PMH CAD s/p stents, CABG, HTN, dyslipidemia, PAF s/p cardioversion, GERD presented to ER with complaint of right foot redness x 1 day after stepping on nail with puncture through sneaker 4 days ago. Reported tetanus booster 07/2023 In ER afebrile, HR 84-101, other vitals stable. WBC: 10.6, lactate 3.4--> 1.9 Right foot x-ray noted degenerative changes without evidence of acute fracture. Information Systems Technician evaluation noted Continue vancomycin and cefepime Continue pain control 1 bottle of blood culture from admission noted GPR. ID panel PCR negative. Possibly contaminant but will follow up repeat blood culture 08/06 CT Foot with contrast: 1. Nondisplaced fracture at the base the right fourth toe proximal phalanx. 2. There are few punctate metallic foreign bodies within the fracture site and the adjacent dorsal soft tissues. 3. Soft tissue swelling within the dorsal and lateral aspect of the foot and ankle most pronounced at the fourth MTP joint. 4. No definite loculated fluid collections to suggest an abscess. discussed with Dr. Haas surgery not recommended continue Abx 08/07 foot with more erythema, persistent edema discussed with patient and daughter repeat CT today Doppler US to r/o DVT change abx from Vanco + Cefepime to Dapto + Ertapenem ID consulted Information Systems Technician also on board (2) DM type 2 (diabetes mellitus, type 2): Plan: A1c: 7.9 on 03/10/2023 HbA1c is 8.2 08/02/23 Continue to hold home Jardiance, glyburide, metformin Patient has been declining insulin sq here Provided DM education Blood glucose is currently under control. Will continue accuchecks and hold glargine for now He is open to novolog sliding scale sq if BG is elevated>150 08/07 continue to monitor (3) Atrial fibrillation: Plan: History of paroxysmal atrial fibrillation s/p cardioversion 05/2023 Chronically anticoagulated on Eliquis Currently in Afib Continue metoprolol succinate Home eliquis on hold in case surgical procedure is needed this admission 08/07 Continue heparin drip for now while eliquis is on hold Rate controlled (4) CAD (coronary artery disease): Plan: S/p stent, CABG x3 Per outpatient chart review History cardiac cath 04/30/2023: Significant [place] multivessel disease: Distal LMCA 30%, mid LAD 100%, diagonal 1 is small vessel and diffusely diseased, proximal left circumflex 50% stenosis, OM1 50% stenosis distal to previously placed stent which is patent, proximal through mid RCA 100% occluded (in-stent) grafts 2/3 GUILLEN-LAD and SVG to r PDA widely patent, SVG to diag is 100% flush occluded Continue Plavix, rosuvastatin, metoprolol succinate (5) HTN (hypertension): Plan: Stable Continue metoprolol succinate, ACEI (6) GERD (gastroesophageal reflux disease): Plan: Continue PPI DVT Prophylaxis Hep gtt as above Full Code as per discussion with pt Follows with Dr Thakur for routine care plan of care discussed with patient and his daughter in detail and at length all questions answered they are understanding, agreeable, comfortable with the plan of care Admission and Anticipated Discharge Date Admission Date: August 01, 2023 Subjective ff up for R foot puncture wound, cellulitis, etc seen resting in bed, still having pain on the dorsal aspect of foot no fever/chills no chest pain, dyspnea, palpitations, dizziness no other new symptoms Review of Systems Review of Systems: all noted and negative except for above Physical Exam Physical Exam: General- oriented x 3, not in distress, speaks in sentences with no effort or accessory muscle use Eyes- anicteric Neck- no JVD Lungs- clear breath sounds bilaterally, no rales/wheezes Heart- normal rate, regular rhythm; no murmurs Abdomen- normal bowel sounds, nondistended, soft, nontender Extremities-R foot: (+) increased erythema dorsal aspect, forefoot (+) moderate tenderness to the area R lower leg: (+) mild-moderate edema, no warmth, erythema, tenderness Neuro- alert, oriented x 3; no gross focal neurologic deficits Skin- warm & dry Results & Data Results & Data Vital Signs (Past 12 Hours) Vital Signs Temp Pulse Resp BP Pulse Ox O2 Del Method 08/07/23 11:30 36 C L 82 138/82 98 Room Air 08/07/23 11:30 36 C L 82 138/82 98 Room Air 08/07/23 07:52 36.5 C 74 18 111/70 97 Room Air all noted and reviewed including below
[2023-08-07] MEDS: oxyCODONE HCL IR 5 MG TAB (IMMEDIATE RELEASE) PO PRN (20:57)
[2023-08-07] MEDS ORDERED: DAPTOmycin 350 MG in SYRINGE 0 ML IV SCH (21:00)
--- NOTE | 2023-08-07 21:50 | Ultrasound Report ---
Exam(s): US VENOUS RIGHT LOWER EXTREMITY EXAM: US Duplex Right Lower Extremity Veins CLINICAL HISTORY: Reason for exam: pain, edema, r/o DVT. TECHNIQUE: Real-time duplex ultrasound scan of the right lower extremity veins integrating B-mode two-dimensional vascular structure, Doppler spectral analysis, color flow Doppler imaging and compression. COMPARISON: No relevant prior studies available. FINDINGS: Deep veins: Nonocclusive thrombus seen in a branch of the popliteal vein. Rest of the veins in the right lower extremity are unremarkable. Superficial veins: Unremarkable. No thrombus in the visualized great saphenous vein. Soft tissues: No acute findings. No popliteal cyst. IMPRESSION: Nonocclusive thrombus in a branch of the popliteal vein Electronically signed by: Jus Robles MD 08/07/23 21:25 PM
[2023-08-08] MEDS: MEROPENEM 500 MG in SYRINGE 0 ML IV SCH ×2 (02:16→08:54)
[2023-08-08 07:09] LABS: Creatinine Clr Calc Pharmacy 118.6 ml/min; Est GFR (African American) 112.7 ml/min; Est GFR (Non-African American) 97.3 ml/min
[2023-08-08 07:39] LABS: Partial Thromboplastin Ratio 2.1
[2023-08-08 07:54] LABS: Partial Thromboplastin Time 59.5 Seconds (21.0-31.0)
[2023-08-08] MEDS: oxyCODONE HCL IR 5 MG TAB (IMMEDIATE RELEASE) PO PRN (08:54)
[2023-08-08] MEDS: PANTOprazole 40 MG TAB PO SCH (08:55)
[2023-08-08] MEDS: CLOPIDOGREL BISULFATE 75 MG TAB PO SCH (08:55)
[2023-08-08] MEDS: ADVANCED PROBIOTIC 1250 MG CAPSULE PO SCH (08:55)
[2023-08-08] MEDS: METOPROLOL SUCC 50MG EXT REL TAB PO SCH ×2 (08:55→20:31)
[2023-08-08] MEDS: ENALAPRIL MALEATE 10 MG TAB PO SCH (08:55)
[2023-08-08] MEDS: INSULIN ASPART PER UNIT CHARGE SC SCH ×4 (09:15→21:58)
[2023-08-08] MEDS ORDERED: FUROSEMIDE INJ 20 MG/2 ML VIAL IV ONE (09:38)
[2023-08-08] MEDS: APIXABAN 5 MG TABLET PO SCH ×2 (11:14→20:31)
--- NOTE | 2023-08-08 13:11 | Infectious Disease Consult ---
Date of Service August 08, 2023 Telehealth Information I performed this visit using a real-time telehealth connection between my location and the patients location ([facility]). After connecting through interactive tele-video, patient was identified by name and date of and/or wristband check.Patient (or authorized healthcare group sales representative) was informed that this was a telemedicine visit and it was being conducted confidentially over secure lines. My office door was closed and no one else was present in the room with me.Patient (or authorized healthcare group sales representative) provided consent to proceed with the visit, expressed an understanding of privacy and security of the telemedicine visit, and gave permission to have a hospital group sales representative in the room in order to assist with the visit and to conduct portions of the visit, as needed. I informed the patient (or authorized healthcare group sales representative) that I reviewed their record and presented the opportunity for them to ask any questions regarding the visit today. The patient agreed to participate. Assessment & Plan (1) Cellulitis in diabetic foot: (2) Fracture of foot: Plan Assessment: Cellulitis of R foot after a puncture wound Diptheroids in blood contaminant Nondisplaced fracture at R 4th prox phalax Hx of DM2 Plans: - Stop meropenem - Start ciprofloxacin 500 mg po bid - Stop daptomycin - Start cefadroxil 1000 mg po bid - Anticipate total 7 more days of abx therapy - I recommend close follow up w/ primary care upon discharge - Keep leg elevated It is reasonable to provide antibacterial coverage for Pseudomonas (given risk factor and mode of injury) and usual skin pathogens including Streptococcus and Staphylococcus spp: ciprofloxaxin and cefadroxil. This regimen does not cover MRSA. If the rate of MRSA is relatively high in the region or if s/sx worsens on cipro and cefadroxil, may consider adding doxycycline 100 mg po bid. The swelling, redness, and pain/tenderness present now may be secondary to the fracture rather than the soft tissue infection but it is reasonable to complete a total 14 day course: the patient has already received about 1 week of abx tharepy. Diphtheroids are considered contamination especially in the absence of any prosthetic devices. More than 50% of [id number] visit was spent counseling and coordinating care pertaining to the patient's infection diagnosis, additional work-up, and treatment option(s) as well as potential adverse events of the treatment. History of Present Illness History of Present Illness This 62 y/o male (Deepak) w/ hx of DM2, CAD s/p stents, CABG, HTN, PAF, and GERD, who presented to [facility] on 08/01/23 for redness on R foot x1 day after kilo pping on nail w/ puncture through a sneaker 4 days prior to presention to hospital. No fever or leukocytosis. CT showed nondisplaced fracture at the base of R 4th toe proximal phalanx w/ few punctate metallic foreign bodies w/in the fracture site and the adjacent dorsal soft tissues and soft tissue swelling but no fluid collections. Currently on daptomycin and meropenem, switched from cefepime and vancomycin iv. He still has [id number] pain when bearing weight/walking on the foot but overall controlled better at rest w/ pain medication. No other specific compl aint. Denies n/v, abd pain, diarrhea, coughing, cp, sob, or urinary symptoms. Allergies Allergy/AdvReac Type Severity Reaction Status Date / Time No Known Allergies Allergy Verified 05/14/23 07:13 Home Medications Medication Instructions Recorded Confirmed Type clopidogrel 75 mg tablet 75 mg PO DAILY 01/04/21 08/01/23 History empagliflozin 25 mg tablet 25 mg PO DAILY 01/04/21 08/01/23 History (Jardiance) glyburide 5 mg tablet 5 mg PO BID 01/04/21 08/01/23 History metformin 1,000 mg tablet 1,000 mg PO BIDM 01/04/21 08/01/23 History metoprolol succinate 50 mg 50 mg PO BID 01/04/21 08/01/23 History tablet,extended release 24 hr (Toprol XL) multivitamin 1 tab PO DAILY 01/04/21 08/01/23 History pantoprazole 20 mg tablet,delayed 20 mg PO DAILY 01/04/21 08/01/23 History release ramipril 2.5 mg capsule 2.5 mg PO QAM 01/04/21 08/01/23 History apixaban 5 mg tablet (Eliquis) 5 mg PO BID 05/12/23 08/01/23 History rosuvastatin 40 mg tablet 40 mg PO QAM 05/12/23 08/01/23 History metoprolol succinate 25 mg 25 mg PO BID 08/01/23 08/01/23 History tablet,extended release 24 hr Patient History Medical History Atrial fibrillation On Eliquis CAD (coronary artery disease) S/p OM and diagonal stenting 2001 S/p stenting x 2 to RCA 2004 S/p LUIS F to mid and distal RCA and ramus 2014 S/p CABG x3 (2019) DM type 2 (diabetes mellitus, type 2) GERD (gastroesophageal reflux disease) HTN (hypertension) Hx of acute renal failure ~2016- renal x 1 month Hx of myocardial infarction 2001 Hyperlipidemia Surgical History H/O colonoscopy History of elbow surgery Hx of cardiac catheterization last one done 03/2023- [facility] An[facility] ( no stents)--hx 4 procedures in the past -- total of 7 stents Hx of carpal tunnel repair S/P CABG x 3 2017- [facility]- follows w/ Dr Benites Family History Other No family history of adverse response to anesthesia Social History Smoking Status: Never smoker Second Hand Exposure: No; Do You Dip or Chew Tobacco: Yes; Hx Alcohol Use: Yes Alcohol type: hard liquor Hx Substance Use: No Preferred Language: Moroccan Communication Ability: Effective Pipe Tester Required: No Beliefs That Will Affect Care: None Current Living Situation: Alone Other Information That Helps Us Care for You: No Feels Safe at Home: Yes Safety Concerns: Feels Safe At This Time Assistive Devices: Cane Review of Systems as HPI and all others negative Physical Exam General: no acute distress Neuro: alert and oriented x3 Extremities: swelling and redness noted most on forefoot, no redness at the demarcated area on ankle and distal leg. A punctate wound w/ a scab on plantar surface of 4th MT area w/o drainage Results & Data Vital Signs (Past 12 Hours) Vital Signs Temp Pulse Pulse Resp BP Pulse Ox O2 Del Method 08/08/23 13:02 75 08/08/23 07:51 36.6 C 88 16 115/73 97 Room Air 08/08/23 04:12 36.9 C 72 20 115/77 98 Room Air Laboratory Results Labs WBC 10.66K ->-> 6.32K H 13.5 Plt 271K Cr 0.77 CRP (08/06): 3.73 Vanco trough 12.6 (08/07) Blood cx (08/01): Diptheroids (1 of 4) Blood cx (08/04): NGTD EKG (08/01/23): QTc 440 ms Doppler (08/07): Nonocclusive thrombus in a branch of the popliteal vein Diagnostic Findings Foot CT (08/07/23): 1. Nondisplaced fracture at the base of the right fourth toe proximal phalanx, unchanged. 2. There are few punctate metallic foreign bodies within the fracture site and the adjacent dorsal soft tissues of the fourth toe. 3. Soft tissue swelling within the dorsal and lateral aspect of the foot and ankle most pronounced at the fourth MTP joint. 4. No definite loculated fluid collections to suggest an abscess. Medications Administered cefepime and vancomycin iv
--- NOTE | 2023-08-08 16:13 | Hospitalist Progress Note ---
Date of Service August 08, 2023 Assessment & Plan (1) Cellulitis in diabetic foot: Plan: RIGHT FOOT PUNCTURE WOUND RIGHT FOOT AND LOWER LEG CELLULITIS BACTEREMIA, DIPHTHEROIDS per admitting service notes: 62-year-old male with PMH CAD s/p stents, CABG, HTN, dyslipidemia, PAF s/p cardioversion, GERD presented to ER with complaint of right foot redness x 1 day after stepping on nail with puncture through sneaker 4 days ago. Reported tetanus booster 07/2023 In ER afebrile, HR 84-101, other vitals stable. WBC: 10.6, lactate 3.4--> 1.9 Right foot x-ray noted degenerative changes without evidence of acute fracture. Differential Tester evaluation noted Continue vancomycin and cefepime Continue pain control 1 bottle of blood culture from admission noted GPR. ID panel PCR negative. Possibly contaminant but will follow up repeat blood culture 08/06 CT Foot with contrast: 1. Nondisplaced fracture at the base the right fourth toe proximal phalanx. 2. There are few punctate metallic foreign bodies within the fracture site and the adjacent dorsal soft tissues. 3. Soft tissue swelling within the dorsal and lateral aspect of the foot and ankle most pronounced at the fourth MTP joint. 4. No definite loculated fluid collections to suggest an abscess. discussed with Dr. Haas surgery not recommended continue Abx 08/07 foot with more erythema, persistent edema discussed with patient and daughter repeat CT today Doppler US to r/o DVT change abx from Vanco + Cefepime to Dapto + Ertapenem ID consulted Differential Tester also on board 08/08 Physical exam on the right foot similar to yesterday Lasix 20 mg IV given Foot elevation, warm compress twice daily Reevaluate in the afternoon ID recommending Cipro plus cephalexin Edema seems to be improving nonocclusive thrombus in branch of R popliteal vein We will discuss with radiologist if this is acute or chronic Transition from heparin to Eliquis today (2) DM type 2 (diabetes mellitus, type 2): Plan: A1c: 7.9 on 03/10/2023 HbA1c is 8.2 08/02/23 Continue to hold home Jardiance, glyburide, metformin Patient has been declining insulin sq here Provided DM education Blood glucose is currently under control. Will continue accuchecks and hold glargine for now He is open to novolog sliding scale sq if BG is elevated>150 08/08 Continue with insulin sliding scale continue to monitor (3) Atrial fibrillation: Plan: History of paroxysmal atrial fibrillation s/p cardioversion 05/2023 Chronically anticoagulated on Eliquis Currently in Afib Continue metoprolol succinate Home eliquis on hold in case surgical procedure is needed this admission 08/08 Transition to Eliquis today Rate controlled (4) CAD (coronary artery disease): Plan: S/p stent, CABG x3 Per outpatient chart review History cardiac cath 04/30/2023: Significant [place] multivessel disease: Distal LMCA 30%, mid LAD 100%, diagonal 1 is small vessel and diffusely diseased, proximal left circumflex 50% stenosis, OM1 50% stenosis distal to previously placed stent which is patent, proximal through mid RCA 100% occluded (in-stent) grafts 2/3 GUILLEN-LAD and SVG to r PDA widely patent, SVG to diag is 100% flush occluded Continue Plavix, rosuvastatin, metoprolol succinate (5) HTN (hypertension): Plan: Stable Continue metoprolol succinate, ACEI (6) GERD (gastroesophageal reflux disease): Plan: Continue PPI DVT Prophylaxis Hep gtt as above Full Code as per discussion with pt Follows with Dr Thakur for routine care plan of care discussed with patient in detail and at length all questions answered He is understanding, agreeable, comfortable with the plan of care Admission and Anticipated Discharge Date Admission Date: August 01, 2023 Subjective Follow-up for right foot puncture wound, cellulitis, etc. Resting in bed, sitting up, not in distress States he is still having pain on the right foot, no fevers or chills, nausea vomiting No any other symptoms Review of Systems Review of Systems: all noted and negative except for above Physical Exam Physical Exam: General- oriented x 3, not in distress, speaks in sentences with no effort or accessory muscle use Eyes- anicteric Neck- no JVD Lungs- clear breath sounds bilaterally, no rales/wheezes Heart- normal rate, regular rhythm; no murmurs Abdomen- normal bowel sounds, nondistended, soft, nontender Extremities-right foot: Mild to moderate edema, positive erythematous area at the base of the fourth phalanx, no warmth, positive tenderness Neuro- alert, oriented x 3; no gross focal neurologic deficits Skin- warm & dry Results & Data Results & Data Vital Signs (Past 12 Hours) Vital Signs Temp Pulse Pulse Resp BP Pulse Ox O2 Del Method 08/08/23 15:51 36.6 C 84 16 95/60 L 96 Room Air 08/08/23 13:02 75 08/08/23 07:51 36.6 C 88 16 115/73 97 Room Air all noted and reviewed including below
[2023-08-08] MEDS: CIPROFLOXACIN / D5W 400 MG/200 ML BAG IV SCH (16:36)
[2023-08-08] MEDS: cephALEXin 500 MG CAP PO SCH ×2 (16:41→20:31)
[2023-08-09] MEDS: CIPROFLOXACIN / D5W 400 MG/200 ML BAG IV SCH (01:21)
[2023-08-09] MEDS: oxyCODONE HCL IR 5 MG TAB (IMMEDIATE RELEASE) PO PRN (03:40)
[2023-08-09 08:33] LABS: Partial Thromboplastin Ratio 1.1; Partial Thromboplastin Time 30.3 Seconds (21.0-31.0)
[2023-08-09] MEDS: INSULIN ASPART PER UNIT CHARGE SC SCH ×2 (09:08→11:30)
[2023-08-09] MEDS: cephALEXin 500 MG CAP PO SCH (09:08)
[2023-08-09] MEDS: CLOPIDOGREL BISULFATE 75 MG TAB PO SCH (09:09)
[2023-08-09] MEDS: METOPROLOL SUCC 50MG EXT REL TAB PO SCH (09:09)
[2023-08-09] MEDS: PANTOprazole 40 MG TAB PO SCH (09:09)
[2023-08-09] MEDS: ENALAPRIL MALEATE 10 MG TAB PO SCH (09:09)
[2023-08-09] MEDS: APIXABAN 5 MG TABLET PO SCH (09:09)
[2023-08-09] MEDS: ADVANCED PROBIOTIC 1250 MG CAPSULE PO SCH (09:10)
--- NOTE | 2023-08-09 10:08 | Hospitalist Progress Note ---
Date of Service August 09, 2023 Assessment & Plan (1) Cellulitis in diabetic foot: Plan: RIGHT FOOT PUNCTURE WOUND RIGHT FOOT AND LOWER LEG CELLULITIS NONDISPLACED FRACTURE AT THE BASE THE RIGHT FOURTH TOE PROXIMAL PHALANX. per admitting service notes: 62-year-old male with PMH CAD s/p stents, CABG, HTN, dyslipidemia, PAF s/p cardioversion, GERD presented to ER with complaint of right foot redness x 1 day after stepping on nail with puncture through sneaker 4 days ago. Reported tetanus booster 07/2023 In ER afebrile, HR 84-101, other vitals stable. WBC: 10.6, lactate 3.4--> 1.9 Right foot x-ray noted degenerative changes without evidence of acute fracture. given Vancomycin and Cefepime symptoms and lower leg edema improved, foot edema, pain and erythema on the R dorsal aspect of the foot, below the 4th toe persisted 1 bottle of blood culture from admission: Diphtheroids repeat blood culture negative 08/06 CT Foot with contrast: 1. Nondisplaced fracture at the base the right fourth toe proximal phalanx. 2. There are few punctate metallic foreign bodies within the fracture site and the adjacent dorsal soft tissues. 3. Soft tissue swelling within the dorsal and lateral aspect of the foot and ankle most pronounced at the fourth MTP joint. 4. No definite loculated fluid collections to suggest an abscess. discussed with Dr. Haas surgery not recommended, metallic fragments expected continue Abx 08/07 foot with more erythema, persistent edema discussed with patient and daughter repeat CT: unchaged from previous day Doppler US: nonocclusive thrombus in branch of R popliteal vein Edmarisinger ID consulted -Persistent swelling of the foot and area of erythema likely secondary to fracture -Dr. Vaz recommends ciprofloxacin plus cefadroxil x1 week, if swelling and pain is increasing, can add doxycycline twice daily Lasix 20 mg IV given for leg and foot edema Foot elevation, warm compress twice daily 08/09 Edema and pain improving Okay for discharge today Patient received 1 week of Vanco and cefepime, 1 day of ciprofloxacin plus cephalexin Discharge plan: Ciprofloxacin 500 mg twice daily x6 days Cefadroxil 500mg twice daily x 6 days probiotics x 1 month NONOCCLUSIVE THROMBUS IN BRANCH OF R POPLITEAL VEIN Per radiologist, this is acute on chronic Likely secondary to poor mobility secondary to cellulitis, heparin drip subtherapeutic for 2 to 3 days Resume usual Eliquis 5 mg p.o. Repeat Doppler ultrasound of the right lower extremity in 1 week or earlier if symptoms are getting worse (2) DM type 2 (diabetes mellitus, type 2): Plan: A1c: 7.9 on 03/10/2023 HbA1c is 8.2 08/02/23 Continue to hold home Jardiance, glyburide, metformin Patient has been declining insulin sq here Provided DM education Blood glucose is currently under control. Will continue accuchecks and hold glargine for now He is open to novolog sliding scale sq if BG is elevated>150 08/08 Continue with insulin sliding scale continue to monitor (3) Atrial fibrillation: Plan: History of paroxysmal atrial fibrillation s/p cardioversion 05/2023 Chronically anticoagulated on Eliquis Currently in Afib Continue metoprolol succinate Eliquis held, placed on heparin drip admitted Eliquis resumed (4) CAD (coronary artery disease): Plan: S/p stent, CABG x3 Per outpatient chart review History cardiac cath 04/30/2023: Significant [place] multivessel disease: Distal LMCA 30%, mid LAD 100%, diagonal 1 is small vessel and diffusely diseased, proximal left circumflex 50% stenosis, OM1 50% stenosis distal to previously placed stent which is patent, proximal through mid RCA 100% occluded (in-stent) grafts 2/3 GUILLEN-LAD and SVG to r PDA widely patent, SVG to diag is 100% flush occluded Continue Plavix, rosuvastatin, metoprolol succinate (5) HTN (hypertension): Plan: Stable Continue metoprolol succinate, ACEI (6) GERD (gastroesophageal reflux disease): Plan: Continue PPI Discharge to home Follow-up with PCP in 1 week Follow-up with sheet metal worker helper Dr. Haas in 1 week plan of care discussed with patient in detail and at length all questions answered He is understanding, agreeable, comfortable with the plan of care Admission and Anticipated Discharge Date Admission Date: August 01, 2023 Subjective ff up for puncture wound infection, etc seen resting in bed, comfortable states right foot pain is better ambulating better no chest pain, dyspnea, palpitations, dizziness no calf pain no fever/chills states he is ready and would like to be discharged today Review of Systems Review of Systems: all noted and negative except for above Physical Exam Physical Exam: General- oriented x 3, not in distress, speaks in sentences with no effort or accessory muscle use Eyes- anicteric Neck- no JVD Lungs- clear breath sounds bilaterally, no rales/wheezes Heart- normal rate, regular rhythm; no murmurs Abdomen- normal bowel sounds, nondistended, soft, nontender Extremities- R foot: less edema, less erythema on the area below the 4th toe, less tenderness, mild warmth able to move ankle very mild edema of the R lower leg, no erythema, warmth, tenderness LLE: essentially normal no pretibial edema, no calf tenderness Neuro- alert, oriented x 3; no gross focal neurologic deficits Skin- warm & dry Results & Data Results & Data Vital Signs (Past 12 Hours) Vital Signs Temp Pulse Pulse Resp BP Pulse Ox O2 Del Method 08/09/23 09:13 Room Air 08/09/23 07:37 36.5 C 72 18 116/69 96 Room Air 08/09/23 03:30 36.3 C L 71 16 108/73 97 Room Air 08/09/23 00:40 83 08/08/23 23:01 36.6 C 81 18 116/70 99 Room Air all noted and reviewed including below
--- NOTE | 2023-08-09 10:43 | Discharge Summary ---
Discharge Summary Date of Service August 09, 2023 Notes For Next Care Provider REPEAT DOPPLER US OF THE RIGHT LOWER EXT IN 1 WEEK POST DISCHARGE TO RE-EVALUATE Nonocclusive thrombus in a branch of the popliteal vein. Medication Changes From Visit Ciprofloxacin, cefadroxil- antibiotics for infection Oxycodone-as needed for severe pain Admission HPI Per Admitting Provider Patient is 62-year-old male with PMH CAD s/p stents, CABG, HTN, dyslipidemia, PAF s/p cardioversion, GERD presented to ER with complaint of right foot redness x 1 day. Patient states 4 days ago stepped on nail with right foot. Patient states nail punctured through his sneaker into his plantar surface of right foot. Patient states nail was not lodged in his foot however did leave puncture wound. Yesterday noticed foot started to become swollen and tender. Today noticed redness to dorsal aspect of foot. Pain to right foot is worse today, aggravated with any light palpation or attempted walking or weightbearing. Denies noted red streaking or any noted purulent discharge from foot. Patient reports history of stepping on nail with right foot approximately 4 weeks ago and received tetanus booster and oral antibiotics at that time. Patient states never had any redness, erythema or pain to foot at that time. Denies fever/chills, diaphoresis, N/V/D/C, HOOPER, dizziness, syncope, vision changes, neck pain, CP, SOB, orthopnea, palpitations, cough, sore throat, choking, otalgia, rhinorrhea, abdominal pain, paresthesias, weakness, other rashes, urinary symptoms. Admission Exam Per Admitting Provider General: no distress, WDWN Head: normocephalic, atraumatic Eyes: conjunctiva non-injected, anicteric ENT: normal inspection external ears, nose, mucous membranes moist Neck: supple, trachea midline Lungs: clear, no respiratory distress, no wheezing/rhonchi/rales CV: RRR, no murmur, no JVD, no pretibial edema Abd: normal BS, soft, non-tender Ext: no cyanosis, no calf tenderness; RLE: Right foot: + Diffuse edema to entire foot, positive erythema and warmth to dorsal aspect of foot with tenderness to very light palpation, no fluctuance noted, plantar surface distal lateral aspect foot with noted puncture wound without any discharge. No red streaking noted up leg Neuro: A&O x 3, no focal deficits noted, normal affect Skin: As above in extremities, otherwise skin warm, dry Principal Dx & Hospital Course #1 = Principal Diagnosis (1) Cellulitis in diabetic foot: RIGHT FOOT PUNCTURE WOUND RIGHT FOOT AND LOWER LEG CELLULITIS NONDISPLACED FRACTURE AT THE BASE THE RIGHT FOURTH TOE PROXIMAL PHALANX. per admitting service notes: 62-year-old male with PMH CAD s/p stents, CABG, HTN, dyslipidemia, PAF s/p cardioversion, GERD presented to ER with complaint of right foot redness x 1 day after stepping on nail with puncture through sneaker 4 days ago. Reported tetanus booster 07/2023 In ER afebrile, HR 84-101, other vitals stable. WBC: 10.6, lactate 3.4--> 1.9 Right foot x-ray noted degenerative changes without evidence of acute fracture. given Vancomycin and Cefepime symptoms and lower leg edema improved, foot edema, pain and erythema on the R d orsal aspect of the foot, below the 4th toe persisted 1 bottle of blood culture from admission: Diphtheroids repeat blood culture negative 08/06 CT Foot with contrast: 1. Nondisplaced fracture at the base the right fourth toe proximal phalanx. 2. There are few punctate metallic foreign bodies within the fracture site and the adjacent dorsal soft tissues. 3. Soft tissue swelling within the dorsal and lateral aspect of the foot and ankle most pronounced at the fourth MTP joint. 4. No definite loculated fluid collections to suggest an abscess. discussed with Dr. Haas surgery not recommended, metallic fragments expected continue Abx 08/07 foot with more erythema, persistent edema discussed with patient and daughter repeat CT: unchaged from previous day Doppler US: nonocclusive thrombus in branch of R popliteal vein [facility] ID consulted -Persistent swelling of the foot and area of erythema likely secondary to fracture -Dr. Vaz recommends ciprofloxacin plus cefadroxil x1 week, if swelling and pain is increasing, can add doxycycline twice daily Lasix 20 mg IV given for leg and foot edema Foot elevation, warm compress twice daily 08/09 Edema and pain improving gradually Okay for discharge today Patient received 1 week of Vanco and cefepime, 1 day of ciprofloxacin plus cephalexin Discharge plan: Ciprofloxacin 500 mg twice daily x6 days Cefadroxil 500mg twice daily x 6 days probiotics x 1 month NONOCCLUSIVE THROMBUS IN BRANCH OF R POPLITEAL VEIN Per radiologist, this is acute on chronic Likely secondary to poor mobility secondary to cellulitis, heparin drip subtherapeutic for 2 to 3 days Resume usual Eliquis 5 mg p.o. Repeat Doppler ultrasound of the right lower extremity in 1 week or earlier if symptoms are getting worse (2) DM type 2 (diabetes mellitus, type 2): A1c: 7.9 on 03/10/2023 HbA1c is 8.2 08/02/23 ff up closely with PCP continue home regimen (3) Atrial fibrillation: History of paroxysmal atrial fibrillation s/p cardioversion 05/2023 Chronically anticoagulated on Eliquis Currently in Afib Continue metoprolol succinate Eliquis held, placed on heparin drip admitted Eliquis resumed (4) CAD (coronary artery disease): S/p stent, CABG x3 Per outpatient chart review History cardiac cath 04/30/2023: Significant lumbee multivessel disease: Distal LMCA 30%, mid LAD 100%, diagonal 1 is small vessel and diffusely diseased, proximal left circumflex 50% stenosis, OM1 50% stenosis distal to previously placed stent which is patent, proximal through mid RCA 100% occluded (in-stent) grafts 2/3 GUILLEN-LAD and SVG to r PDA widely patent, SVG to diag is 100% flush occluded Continue Plavix, rosuvastatin, metoprolol succinate (5) HTN (hypertension): Stable Continue metoprolol succinate, ACEI (6) GERD (gastroesophageal reflux disease): Continue PPI Discharge to home Follow-up with PCP in 1 week Follow-up with patient resource coordinator Dr. Haas in 1 week plan of care discussed with patient in detail and at length all questions answered He is understanding, agreeable, comfortable with the plan of care Discharge Exam General- oriented x 3, not in distress, speaks in sentences with no effort or accessory muscle use Eyes- anicteric Neck- no JVD Lungs- clear breath sounds bilaterally, no rales/wheezes Heart- normal rate, regular rhythm; no murmurs Abdomen- normal bowel sounds, nondistended, soft, nontender Extremities- R foot: less edema, less erythema on the area below the 4th toe, less tenderness, mild warmth able to move ankle very mild edema of the R lower leg, no erythema, warmth, tenderness LLE: essentially normal no pretibial edema, no calf tenderness Neuro- alert, oriented x 3; no gross focal neurologic deficits Skin- warm & dry Updated Medication List Medication Instructions Recorded Confirmed Type clopidogrel 75 mg tablet 75 mg PO DAILY 01/04/21 08/01/23 History empagliflozin 25 mg tablet 25 mg PO DAILY 01/04/21 08/01/23 History (Jardiance) glyburide 5 mg tablet 5 mg PO BID 01/04/21 08/01/23 History metformin 1,000 mg tablet 1,000 mg PO BIDM 01/04/21 08/01/23 History metoprolol succinate 50 mg 50 mg PO BID 01/04/21 08/01/23 History tablet,extended release 24 hr (Toprol XL) multivitamin 1 tab PO DAILY 01/04/21 08/01/23 History pantoprazole 20 mg tablet,delayed 20 mg PO DAILY 01/04/21 08/01/23 History release ramipril 2.5 mg capsule 2.5 mg PO QAM 01/04/21 08/01/23 History apixaban 5 mg tablet (Eliquis) 5 mg PO BID 05/12/23 08/01/23 History rosuvastatin 40 mg tablet 40 mg PO QAM 05/12/23 08/01/23 History metoprolol succinate 25 mg 25 mg PO BID 08/01/23 08/01/23 History tablet,extended release 24 hr cefadroxil 500 mg capsule 500 mg PO BID #12 caps 08/09/23 Rx ciprofloxacin HCl 500 mg tablet 500 mg PO BID #12 tabs 08/09/23 Rx oxycodone 5 mg tablet 5 mg PO Q6H PRN Severe pain #10 08/09/23 Rx tabs Hospital Stay Data Consultations 08/01/23 15:12 ED Decision to Admit Stat 08/01/23 17:14 Consult Podiatry Routine 08/06/23 08:21 Consult Infectious Diseases Routine Diagnostic Imagining Performed Laboratory Results WBC 6.32 K/ul (4.8-10.8) 08/06/23 08:12 RBC 4.32 M/uL (4.70-6.10) L 08/06/23 08:12 Hgb 13.5 g/dl (14.0-18.0) L 08/06/23 08:12 Hct 39.8 % (42.0-52.0) L 08/06/23 08:12 MCV 92.1 fL (80.0-100.0) 08/06/23 08:12 MCH 31.3 pg (25.0-34.0) 08/06/23 08:12 MCHC 33.9 g/dL (32.0-36.0) 08/06/23 08:12 RDW Std Deviation 47.2 fL (36.4-46.3) H 08/06/23 08:12 RDW Coeff of Rosa 13.8 % (11.5-14.5) 08/06/23 08:12 Plt Count 271 K/uL (130-400) 08/06/23 08:12 MPV 9.3 fL (9.4-12.4) L 08/06/23 08:12 Immature Gran % (Auto) 0.6 % 08/02/23 06:04 Neut % (Auto) 68.6 % 08/02/23 06:04 Lymph % (Auto) 17.3 % 08/02/23 06:04 [place] % (Auto) 9.7 % 08/02/23 06:04 Eos % (Auto) 3.3 % 08/02/23 06:04 Baso % (Auto) 0.5 % 08/02/23 06:04 Neut # (Auto) 6.02 K/uL (1.40-6.50) 08/02/23 06:04 Lymph # (Auto) 1.52 K/uL (1.20-3.40) 08/02/23 06:04 [place] # (Auto) 0.85 K/uL (0.11-0.59) H 08/02/23 06:04 Eos # (Auto) 0.29 K/uL (0.00-0.50) 08/02/23 06:04 Baso # (Auto) 0.04 K/uL (0.00-0.20) 08/02/23 06:04 Immature Gran # (Auto) 0.05 K/uL (0.01-0.20) 08/02/23 06:04 PT 11.3 Seconds (9.0-12.0) 08/02/23 10:29 INR 1.0 (0.9-1.1) 08/02/23 10:29 APTT 30.3 Seconds (21.0-31.0) 08/09/23 07:25 PTT Ratio 1.1 08/09/23 07:25 Sodium 136 mmol/L (136-145) 08/09/23 10:23 Potassium 4.1 mmol/L (3.5-5.1) 08/09/23 10:23 Chloride 101 mmol/L (98-107) 08/09/23 10:23 Carbon Dioxide 29 mmol/L (21-32) 08/09/23 10:23 Anion Gap 6 (3-11) 08/09/23 10:23 BUN 13 mg/dl (6-23) 08/09/23 10:23 Creatinine 0.72 mg/dl (0.6-1.4) 08/09/23 10:23 Est Cr Clr Drug Dosing 125.1 ml/min 08/09/23 10:23 Est GFR ( Amer) 115.9 ml/min 08/09/23 10:23 Est GFR (Non-Af Amer) 100.0 ml/min 08/09/23 10:23 BUN/Creatinine Ratio 18.1 (10-20) 08/09/23 10:23 Glucose 302 mg/dl (70-99(Fasting)) H* 08/09/23 10:23 POC Glucose 276 mg/dl (70-99) H 08/09/23 11:21 Estimat Average Glucose 189 mg/dl 08/02/23 06:04 Hemoglobin A1c 8.2 % (4.5-5.6) H 08/02/23 06:04 Lactate 1.9 mmol/L (0.4-2.0) 08/01/23 17:11 Calcium 9.2 mg/dl (8.6-10.3) 08/09/23 10:23 Phosphorus 2.4 mg/dl (2.5-4.9) L 08/06/23 08:12 Magnesium 2.0 mg/dl (1.7-2.4) 08/06/23 08:12 Total Bilirubin 1.2 mg/dl (0.2-1.0) H 08/01/23 13:20 AST 19 U/L (13-39) 08/01/23 13:20 ALT 29 U/L (7-52) 08/01/23 13:20 Alkaline Phosphatase 45 U/L (34-104) 08/01/23 13:20 C-Reactive Protein 3.73 mg/dl (0-0.5) H 08/06/23 08:12 Total Protein 7.1 gm/dl (6.0-8.3) 08/01/23 13:20 Albumin 4.2 gm/dl (3.4-5.0) 08/01/23 13:20 Globulin 2.9 gm/dl (2.5-4.0) 08/01/23 13:20 Albumin/Globulin Ratio 1.4 (0.9-2) 08/01/23 13:20 Random Vancomycin 12.6 mcg/ml (10-20) 08/07/23 10:56 Bld Cult ID Panel PCR PCR Panel Negative (NotDetected) 08/01/23 17:16 Impressions Foot X-Ray 08/01/23 13:53 XR foot RT min 3V routine CLINICAL HISTORY: foreign body (stepped on nail), erythema,swell TECHNIQUE: 3 views of the right foot were obtained. Comparison: None available at the time of this dictation. FINDINGS: No fractures are present. Degenerative changes are seen. No soft tissue abnormality is seen. IMPRESSION: Degenerative changes without evidence of acute fracture. ACT 112: Negative or not required by law. Electronically signed by: Connor Whitney M.D. 08/01/2023 2:[address] 08/07/23 17:[address] DOSE: 494.63 mGy.cm HISTORY: Follow up up, right foot cellulitis TECHNIQUE: Multiaxial CT images of the right foot were performed and reformatted in the sagittal and coronal plane without the use of contrast. A dose lowering technique was utilized adhering to the principles of ALARA. COMPARISON: Right foot CT 08/06/2023. FINDINGS: There is a nondisplaced fracture at the base of the right fourth toe proximal phalanx, unchanged. No definite intra-articular extension. There are few punctate metallic foreign bodies within the fracture site and the adjacent dorsal soft tissues again noted. Soft tissue swelling within the dorsal and lateral aspects of the foot and ankle most pronounced at the fourth MTP joint. No definite loculated fluid collections to suggest an abscess at this time. No bony destructive changes identified. No dislocation. Advanced degenerative changes at the first MTP joint. The Lisfranc joint is intact. IMPRESSION: 1. Nondisplaced fracture at the base of the right fourth toe proximal phalanx, unchanged. 2. There are few punctate metallic foreign bodies within the fracture site and the adjacent dorsal soft tissues of the fourth toe. 3. Soft tissue swelling within the dorsal and lateral aspect of the foot and ankle most pronounced at the fourth MTP joint. 4. No definite loculated fluid collections to suggest an abscess. ACT 112: Negative or not required by law. Electronically signed by: Greg Tristan M.D. 08/07/2023 6:24 PM Venous Doppler Study 08/07/23 17:08 Exam(s): US VENOUS RIGHT LOWER EXTREMITY EXAM: US Duplex Right Lower Extremity Veins CLINICAL HISTORY: Reason for exam: pain, edema, r/o DVT. TECHNIQUE: Real-time duplex ultrasound scan of the right lower extremity veins integrating B-mode two-dimensional vascular structure, Doppler spectral analysis, color flow Doppler imaging and compression. COMPARISON: No relevant prior studies available. FINDINGS: Deep veins: Nonocclusive thrombus seen in a branch of the popliteal vein. Rest of the veins in the right lower extremity are unremarkable. Superficial veins: Unremarkable. No thrombus in the visualized great saphenous vein. Soft tissues: No acute findings. No popliteal cyst. IMPRESSION: Nonocclusive thrombus in a branch of the popliteal vein Electronically signed by: Jus Robles MD 08/07/23 21:25 PM 08/06/23 11:36 CT foot RT w con Routine 08/07/23 17:08 CT foot RT wo con Stat US venous doppler LE RT Stat Pending Results Patient Have Any Pending Studies at Discharge: Yes Discharge Instructions Given to Patient (Per Discharging Provider) YOU NEED A REPEAT DOPPLER ULTRASOUND OF YOUR RIGHT LOWER LEG IN 1 WEEK, DURING YOUR FOLLOW-UP VISIT WITH YOUR PRIMARY CARE PHYSICIAN TO REEVALUATE BLOOD CLOT ON THE RIGHT LEG. PLEASE REFER TO YOUR NEW MEDICATION LIST AND FOLLOW INSTRUCTIONS CAREFULLY. YOUR NEW MEDICATIONS INCLUDE: Ciprofloxacin, cefadroxil- antibiotics for infection Oxycodone-as needed for severe pain Take a probiotic daily x1 month. Renew[employer] Brand recommended. Also include yogurt in your daily diet. Drink plenty of fluids. Take a laxative daily. PLEASE CALL YOUR PRIMARY CARE PHYSICIAN OR RETURN TO THE ER IF WITH WORSENING OF SYMPTOMS, INCLUDING Worsening of leg or foot swelling, pain, tenderness, redness, Fevers or chills, weakness, nausea or vomiting, Diarrhea, etc. FOLLOW UP WITH PRIMARY CARE PHYSICIAN OUTLINED ABOVE. FOLLOW-UP WITH CATERING SERVER DR. ESTHELA HAAS IN 1 WEEK. PLEASE CALL HIS OFFICE FOR AN APPOINTMENT. Total Time Total Time Spent Total Time Spent (In Minutes): >30 minutes
[2023-08-09 11:14] LABS: BUN Creatinine Ratio 18.1 (10-20); Calcium 9.2 mg/dl (8.6-10.3); Creatinine Clr Calc Pharmacy 125.1 ml/min; Est GFR (African American) 115.9 ml/min; Potassium 4.1 mmol/L (3.5-5.1)
[2023-08-09] MEDS ORDERED: FUROSEMIDE INJ 20 MG/2 ML VIAL IV ONE (11:23)
== END 2023-08-09 14:55 | disposition home or self-care (01) | DRG 638 ==
LOC: ED 12:53 → EDINP 15:32 → SUATTDRO 15:32 → 2N 18:00